=== PATIENT | female | born 1945 | race Caucasian/White ===

== ENCOUNTER 2021-03-25 14:15 | Inpatient (IN) | payer MEDICARE, MEDICAID ==
[2021-03-25] MEDS ORDERED: Sodium Chloride 0.9% 1,000 ML IV ONE (15:47)
--- NOTE | 2021-03-25 15:47 | EDM.PDOC ---
ED HPI GENERAL MEDICAL PROBLEM - General Chief Complaint: Gastrointestinal Problem Stated Complaint: RECTAL BLEEDING Time Seen by Provider: 03/25/21 15:38 Source of Information: Reports: Patient History Limitations: Reports: No Limitations - History of Present Illness INITIAL COMMENTS - FREE TEXT/NARRATIVE: HISTORY AND PHYSICAL: History of present illness: Patient is a 76-year-old female who presents to the emergency room with complaints of nausea, vomiting, left upper and lower quadrant abdominal pain and bloody stools. Patient states that over the past 2 days she has felt near syncopal, has been very weak and dizzy. She has left upper and left lower quadrant abdominal pain over the past 2 days associated with one episode of vomiting yesterday and mild nausea today. Initially she had noted some bloody stools, today it is "straight blood". No previous history of any GI diagnoses or problems. States she has never had a colonoscopy. Last normal bowel movement was 2 days ago. Patient denies any fever, chills, headache, change in vision, or syncope. Denies any chest pain, back pain, shortness of breath or cough. Denies any diarrhea, constipation, dysuria, or hematuria. Patient has been eating and drinking appropriately. Patient does take Plavix daily. Hx of hypertension. Review of systems: As per history of present illness and below otherwise all systems reviewed and negative. Past medical history: As per history of present illness and as reviewed below otherwise noncontributory. Surgical history: As per history of present illness and as reviewed below otherwise noncontributory. Social history: See social history for further information Family history: As per history of present illness and as reviewed below otherwise noncontributory. Physical exam: General: Well developed and well nourished 76 year old male. Alert and orientated x 3. Nontoxic in appearance and in no acute distress. Vital signs are stable and have been reviewed by me. Nursing notes were reviewed. Accompanied by son who is attentive to her needs at bedside. HEENT: Atraumatic, normocephalic, pupils equal and reactive bilaterally, negative for conjunctival pallor or scleral icterus, mucous membranes moist, trachea midline. No drooling or trismus noted. No meningeal signs. No hot potato voice noted. Lungs: Clear to auscultation bilaterally. No wheezes, rales, or rhonchi. Chest nontender. Normal work of breathing, no accessory muscles used. Heart: S1S2, regular rate and rhythm without overt murmur, gallops, or rubs. No JVD. No peripheral edema Abdomen: Soft, nondistended, left upper quadrant and left lower quadrant tenderness to palpation. Normoactive bowel sounds. Negative for masses or costovertebral tenderness. Pelvis: Stable nontender. Genitourinary/Rectal: This was done with consent and a shower doors and panels fabricator at the bedside. No external or internal hemorrhoids are noted. Hemoccult positive, pink/red coloration. Good rectal tone. Skin: Intact, warm, dry. No lesions or rashes noted. Hematologic: No petechiae or purpra. Mucosa appropriate color and normal nail bed color and refill. Extremities: Atraumatic, moves all extremities per self without difficulty or deficits, negative for cords or calf pain. Neurovascular unremarkable. Neuro: Awake, alert, oriented. Cranial nerves II through XII unremarkable. Cerebellum unremarkable. Motor and sensory unremarkable throughout. Exam nonfocal. Psychiatric: Mood and affect are appropriate. Normal thought process. Answering questions appropriately. Notes: *This patient was seen and evaluated during the 2019 SARS-CoV-2 novel coronavirus pandemic period. Community viral transmission is ongoing at time of this encounter and the emergency department is operating under pandemic response procedures. Patient is a 76-year-old female who presents to the emergency room with complaints of left-sided abdominal pain, blood per rectum and nausea. She states this has been ongoing for the last 2 days. Initially started as bloody stools and now it is bright red blood per rectum. She states she has felt lightheaded and dizzy like she could pass out. Vital signs are stable. We will do lab work including CT scan of the abdomen and pelvis. Patient does have a leukocytosis of 19.85 (H), hemoglobin 38.2, hematocrit 9.5. BUN 62 (H) and creatinine 2.9 (H). Unable to do CT scan with contrast due to kidney function. CT shows prominent fluid content of the distal colon consistent with a diarrheal illness. Large bilateral renal cysts. Bilateral common iliac artery stents. I did talk with Dr. Domingo about this patient for admission. She is agreeable to keeping him for colitis. I also spoke with Dr. Chin about possible follow-up/consultation. She is aware. Patient's vital signs are stable. She is aware of admission and agreeable. We will continue to monitor Diagnostics: CBC, CMP, type and screen, INR, CT abdomen and pelvis, Stool studies Therapeutics: IV fluid, Zosyn Impression: BRBPR Colitis SOFÍA Plan: Inpatient admission to Med/Surg with telemetry Definitive disposition and diagnosis as appropriate pending reevaluation and review of above. Duration: Day(s): Location: Reports: Abdomen Right Lower Abdomen Pain Score (Numeric/FACES): 8 - Related Data Allergies Allergy/AdvReac Type Severity Reaction Status Date / Time No Known Allergies Allergy Verified 12/16/13 09:08 Home Meds: Home Meds Aspirin [Durlaza] 162.5 mg PO DAILY 03/22/16 [History] Clopidogrel [Plavix] 75 mg PO DAILY 03/22/16 [History] hydroCHLOROthiazide [Hydrochlorothiazide] 50 mg PO DAILY 03/22/16 [History] lisinopriL [Zestril] 20 mg PO DAILY 03/22/16 [History] Past Medical History HEENT History: Reports: None Cardiovascular History: Reports: Hypertension, Stents Oncologic (Cancer) History: Reports: None - Infectious Disease History Infectious Disease History: Reports: Measles, Mumps Social & Family History - Family History Family Medical History: No Pertinent Family History - Tobacco Use Tobacco Use Status *Q: Current Every Day Tobacco User Years of Tobacco use: 50 Packs/Tins Daily: 1 - Caffeine Use Caffeine Use: Reports: None, Coffee - Recreational Drug Use Recreational Drug Use: No ED ROS GENERAL - Review of Systems Review Of Systems: Comprehensive ROS is negative, except as noted in HPI. ED EXAM, GENERAL - Physical Exam Exam: See Below (See dictation) Course - Vital Signs Last Recorded V/S: Last Vital Signs Temp 97.2 F 03/25/21 14:57 Pulse 88 03/25/21 14:57 Resp 18 03/25/21 14:57 BP 102/62 03/25/21 14:57 Pulse Ox 97 03/25/21 14:57 - Orders/Labs/Meds Orders: Active Orders 24 hr Category Date Time Status Admission Status [Patient Status] [ADT] Stat ADT 03/25/21 18:37 Active Orthostatic Vital Signs [RC] ASDIRECTED Care 03/25/21 15:47 Active C DIFFICILE AG/TOXIN W/REFLEX [RM] Stat Lab 03/25/21 18:44 Ordered CAMPYLOBACTER CULT [MREF] Stat Lab 03/25/21 18:44 Ordered CULTURE BLOOD [BC] Stat Lab 03/25/21 17:01 Received CULTURE BLOOD [BC] Stat Lab 03/25/21 17:08 Received CULTURE URINE [MREF] Stat Lab 03/25/21 17:31 Received H PYLORI STOOL ANTIGEN [MREF] Stat Lab 03/25/21 18:44 Ordered OCCULT BLOOD DIAGNOSTIC [OP] Stat Lab 03/25/21 15:38 Ordered OVA & PARASITES BY IMMUNOASSAY [MREF] Stat Lab 03/25/21 18:44 Ordered STOOL CULTURE/SHIGA TOXIN [MREF] Stat Lab 03/25/21 18:44 Ordered Piperacillin/Tazobactam [Piperacil-Tazobact] 3.375 gm Med 03/25/21 18:36 Active Sodium Chloride 0.9% [Normal Saline] 50 ml IV ONETIME Sodium Chloride 0.9% [Normal Saline] 1,000 ml Med 03/25/21 15:47 Active IV STAT Blood Culture x2 Reflex Set [OM.PC] Stat Oth 03/25/21 16:38 Ordered Medication Orders Sodium Chloride (Normal Saline) 1,000 mls @ 150 mls/hr IV STAT ONE Stop: 03/25/21 22:26 Last Admin: 03/25/21 15:51 Dose: 150 mls/hr Documented by: MADALYN Piperacillin Sod/Tazobactam (Sod 3.375 gm/ Sodium Chloride) 50 mls @ 100 mls/hr IV ONETIME ONE Stop: 03/25/21 19:05 Labs: Laboratory Tests 03/25/21 03/25/21 03/25/21 Range/Units 15:50 15:50 15:50 WBC 19.85 H (4.0-11.0) K/uL RBC 4.02 L (4.30-5.90) M/uL Hgb 13.1 (12.0-16.0) g/dL Hct 38.2 (36.0-46.0) % MCV 95.0 (80.0-98.0) fL MCH 32.6 H (27.0-32.0) pg MCHC 34.3 (31.0-37.0) g/dL RDW Std Deviation 49.7 (28.0-62.0) fl RDW Coeff of Chyna 14 (11.0-15.0) % Plt Count 219 (150-400) K/uL MPV 11.10 (7.40-12.00) fL Neut % (Auto) 85.0 H (48.0-80.0) % Lymph % (Auto) 8.3 L (16.0-40.0) % [place] % (Auto) 6.6 (0.0-15.0) % Eos % (Auto) 0.0 (0.0-7.0) % Baso % (Auto) 0.1 (0.0-1.5) % Neut # (Auto) 16.9 H (1.4-5.7) K/uL Lymph # (Auto) 1.6 (0.6-2.4) K/uL [place] # (Auto) 1.3 H (0.0-0.8) K/uL Eos # (Auto) 0.0 (0.0-0.7) K/uL Baso # (Auto) 0.0 (0.0-0.1) K/uL Nucleated RBC % 0.0 /100WBC Nucleated RBCs # 0 K/uL INR 1.01 Sodium 136 (136-145) mmol/L Potassium 4.2 (3.5-5.1) mmol/L Chloride 99 (98-107) mmol/L Carbon Dioxide 23.8 (21.0-32.0) mmol/L BUN 62 H (7.0-18.0) mg/dL Creatinine 2.9 H (0.6-1.0) mg/dL Est Cr Clr Drug Dosing 15.08 mL/min Estimated GFR (MDRD) 15.8 ml/min Glucose 126 H (74-106) mg/dL Lactic Acid (0.4-2.0) mmol/L Calcium 9.1 (8.5-10.1) mg/dL Total Bilirubin 0.8 (0.2-1.0) mg/dL AST 24 (15-37) IU/L ALT 25 (14-63) IU/L Alkaline Phosphatase 117 H (46-116) U/L Total Protein 7.4 (6.4-8.2) g/dL Albumin 3.7 (3.4-5.0) g/dL Globulin 3.7 (2.6-4.0) g/dL Albumin/Globulin Ratio 1.0 (0.9-1.6) Urine Color Urine Appearance Urine pH (5.0-8.0) Ur Specific [place] (1.001-1.035) Urine Protein (NEGATIVE) mg/dL Urine Glucose (UA) (NEGATIVE) mg/dL Urine Ketones (NEGATIVE) mg/dL Urine Occult Blood (NEGATIVE) Urine Nitrite (NEGATIVE) Urine Bilirubin (NEGATIVE) Urine Urobilinogen (<2.0) EU/dL Ur Leukocyte Esterase (NEGATIVE) Urine RBC (0-2/HPF) Urine WBC (0-5/HPF) Ur Epithelial Cells (NONE-FEW) Urine Bacteria (NEGATIVE) SARS-CoV-2 RNA (KELSEA) (NEGATIVE) Blood Type Antibody Screen 03/25/21 03/25/21 03/25/21 Range/Units 15:50 17:08 17:30 WBC (4.0-11.0) K/uL RBC (4.30-5.90) M/uL Hgb (12.0-16.0) g/dL Hct (36.0-46.0) % MCV (80.0-98.0) fL MCH (27.0-32.0) pg MCHC (31.0-37.0) g/dL RDW Std Deviation (28.0-62.0) fl RDW Coeff of Chyna (11.0-15.0) % Plt Count (150-400) K/uL MPV (7.40-12.00) fL Neut % (Auto) (48.0-80.0) % Lymph % (Auto) (16.0-40.0) % [place] % (Auto) (0.0-15.0) % Eos % (Auto) (0.0-7.0) % Baso % (Auto) (0.0-1.5) % Neut # (Auto) (1.4-5.7) K/uL Lymph # (Auto) (0.6-2.4) K/uL [place] # (Auto) (0.0-0.8) K/uL Eos # (Auto) (0.0-0.7) K/uL Baso # (Auto) (0.0-0.1) K/uL Nucleated RBC % /100WBC Nucleated RBCs # K/uL INR Sodium (136-145) mmol/L Potassium (3.5-5.1) mmol/L Chloride (98-107) mmol/L Carbon Dioxide (21.0-32.0) mmol/L BUN (7.0-18.0) mg/dL Creatinine (0.6-1.0) mg/dL Est Cr Clr Drug Dosing mL/min Estimated GFR (MDRD) ml/min Glucose (74-106) mg/dL Lactic Acid 1.3 (0.4-2.0) mmol/L Calcium (8.5-10.1) mg/dL Total Bilirubin (0.2-1.0) mg/dL AST (15-37) IU/L ALT (14-63) IU/L Alkaline Phosphatase (46-116) U/L Total Protein (6.4-8.2) g/dL Albumin (3.4-5.0) g/dL Globulin (2.6-4.0) g/dL Albumin/Globulin Ratio (0.9-1.6) Urine Color Urine Appearance Urine pH (5.0-8.0) Ur Specific [place] (1.001-1.035) Urine Protein (NEGATIVE) mg/dL Urine Glucose (UA) (NEGATIVE) mg/dL Urine Ketones (NEGATIVE) mg/dL Urine Occult Blood (NEGATIVE) Urine Nitrite (NEGATIVE) Urine Bilirubin (NEGATIVE) Urine Urobilinogen (<2.0) EU/dL Ur Leukocyte Esterase (NEGATIVE) Urine RBC (0-2/HPF) Urine WBC (0-5/HPF) Ur Epithelial Cells (NONE-FEW) Urine Bacteria (NEGATIVE) SARS-CoV-2 RNA (KELSEA) NEGATIVE (NEGATIVE) Blood Type O POSITIVE Antibody Screen NEGATIVE 03/25/21 Range/Units 17:31 WBC (4.0-11.0) K/uL RBC (4.30-5.90) M/uL Hgb (12.0-16.0) g/dL Hct (36.0-46.0) % MCV (80.0-98.0) fL MCH (27.0-32.0) pg MCHC (31.0-37.0) g/dL RDW Std Deviation (28.0-62.0) fl RDW Coeff of Chyna (11.0-15.0) % Plt Count (150-400) K/uL MPV (7.40-12.00) fL Neut % (Auto) (48.0-80.0) % Lymph % (Auto) (16.0-40.0) % [place] % (Auto) (0.0-15.0) % Eos % (Auto) (0.0-7.0) % Baso % (Auto) (0.0-1.5) % Neut # (Auto) (1.4-5.7) K/uL Lymph # (Auto) (0.6-2.4) K/uL [place] # (Auto) (0.0-0.8) K/uL Eos # (Auto) (0.0-0.7) K/uL Baso # (Auto) (0.0-0.1) K/uL Nucleated RBC % /100WBC Nucleated RBCs # K/uL INR Sodium (136-145) mmol/L Potassium (3.5-5.1) mmol/L Chloride (98-107) mmol/L Carbon Dioxide (21.0-32.0) mmol/L BUN (7.0-18.0) mg/dL Creatinine (0.6-1.0) mg/dL Est Cr Clr Drug Dosing mL/min Estimated GFR (MDRD) ml/min Glucose (74-106) mg/dL Lactic Acid (0.4-2.0) mmol/L Calcium (8.5-10.1) mg/dL Total Bilirubin (0.2-1.0) mg/dL AST (15-37) IU/L ALT (14-63) IU/L Alkaline Phosphatase (46-116) U/L Total Protein (6.4-8.2) g/dL Albumin (3.4-5.0) g/dL Globulin (2.6-4.0) g/dL Albumin/Globulin Ratio (0.9-1.6) Urine Color YELLOW Urine Appearance HAZY Urine pH 5.5 (5.0-8.0) Ur Specific [place] 1.020 (1.001-1.035) Urine Protein NEGATIVE (NEGATIVE) mg/dL Urine Glucose (UA) NEGATIVE (NEGATIVE) mg/dL Urine Ketones NEGATIVE (NEGATIVE) mg/dL Urine Occult Blood SMALL H (NEGATIVE) Urine Nitrite NEGATIVE (NEGATIVE) Urine Bilirubin NEGATIVE (NEGATIVE) Urine Urobilinogen 0.2 (<2.0) EU/dL Ur Leukocyte Esterase TRACE H (NEGATIVE) Urine RBC 0-1 (0-2/HPF) Urine WBC 0-2 (0-5/HPF) Ur Epithelial Cells FEW (NONE-FEW) Urine Bacteria FEW (NEGATIVE) SARS-CoV-2 RNA (KELSEA) (NEGATIVE) Blood Type Antibody Screen Meds: Medications Generic Name Dose Route Start Last Admin Trade Name Freq PRN Reason Stop Dose Admin Sodium Chloride 1,000 mls @ 150 mls/hr 03/25/21 15:47 03/25/21 15:51 Normal Saline IV 03/25/21 22:26 150 mls/hr STAT ONE Administration Piperacillin Sod/Tazobactam 50 mls @ 100 mls/hr 03/25/21 18:36 Sod 3.375 gm/ Sodium Chloride IV 03/25/21 19:05 ONETIME ONE Departure - Departure Time of Disposition: 18:49 Disposition: Admitted As Inpatient 67 Clinical Impression: BRBPR (bright red blood per rectum), Colitis, SOFÍA (acute kidney injury) - Discharge Information Referrals: Scarlett Bridges JAR CAPPER [Primary Care Provider] - Forms: ED Department Discharge Sepsis Event Note (ED) - Focused Exam Vital Signs: Vital Signs Temp Pulse Resp BP Pulse Ox 03/25/21 14:57 97.2 F 88 18 102/62 97 - My Orders Last 24 Hours: My Active Orders 03/25/21 15:38 OCCULT BLOOD DIAGNOSTIC [OP] Stat 03/25/21 15:47 Orthostatic Vital Signs [RC] ASDIRECTED Sodium Chloride 0.9% [Normal Saline] 1,000 ml IV STAT 03/25/21 16:38 Blood Culture x2 Reflex Set [OM.PC] Stat 03/25/21 17:01 CULTURE BLOOD [BC] Stat 03/25/21 17:08 CULTURE BLOOD [BC] Stat 03/25/21 17:31 CULTURE URINE [MREF] Stat 03/25/21 18:36 Piperacillin/Tazobactam [Piperacil-Tazobact] 3.375 gm Sodium Chloride 0.9% [Normal Saline] 50 ml IV ONETIME 03/25/21 18:37 Admission Status [Patient Status] [ADT] Stat 03/25/21 18:44 C DIFFICILE AG/TOXIN W/REFLEX [RM] Stat CAMPYLOBACTER CULT [MREF] Stat H PYLORI STOOL ANTIGEN [MREF] Stat OVA & PARASITES BY IMMUNOASSAY [MREF] Stat STOOL CULTURE/SHIGA TOXIN [MREF] Stat - Assessment/Plan Last 24 Hours: My Active Orders 03/25/21 15:38 OCCULT BLOOD DIAGNOSTIC [OP] Stat 03/25/21 15:47 Orthostatic Vital Signs [RC] ASDIRECTED Sodium Chloride 0.9% [Normal Saline] 1,000 ml IV STAT 03/25/21 16:38 Blood Culture x2 Reflex Set [OM.PC] Stat 03/25/21 17:01 CULTURE BLOOD [BC] Stat 03/25/21 17:08 CULTURE BLOOD [BC] Stat 03/25/21 17:31 CULTURE URINE [MREF] Stat 03/25/21 18:36 Piperacillin/Tazobactam [Piperacil-Tazobact] 3.375 gm Sodium Chloride 0.9% [Normal Saline] 50 ml IV ONETIME 03/25/21 18:37 Admission Status [Patient Status] [ADT] Stat 03/25/21 18:44 C DIFFICILE AG/TOXIN W/REFLEX [RM] Stat CAMPYLOBACTER CULT [MREF] Stat H PYLORI STOOL ANTIGEN [MREF] Stat OVA & PARASITES BY IMMUNOASSAY [MREF] Stat STOOL CULTURE/SHIGA TOXIN [MREF] Stat
[2021-03-25 16:40] LABS: CARBON DIOXIDE,CO2 23.8 mmol/L (21.0-32.0); POTASSIUM,K 4.2 mmol/L (3.5-5.1)
--- NOTE | 2021-03-25 18:17 | CT ---
Clinical INDICATION: Left lower quadrant pain. Bloody stools. TECHNIQUE: Axial noncontrast CT cuts were performed from above diaphragm to below the ischial tuberosities. Findings : There is fluid within the distal colon consistent with a diarrheal illness. The small bowel appears normal. There is no free intraperitoneal air or fluid. There are multiple cysts arising from both kidneys with the largest on the left measuring up to 5.4 cm. The largest on the right measures up to 6.2 cm. There are bilateral common iliac stents. The liver, spleen, pancreas and adrenal glands appear normal. There are no enlarged retroperitoneal, mesenteric, iliac or inguinal lymph nodes. The uterus and urinary bladder appear normal. There are no nodules or masses at the lung bases. There are no lytic or blastic skeletal lesions. IMPRESSION: 1. Prominent fluid content of the distal colon consistent with a diarrheal illness. 2. Large bilateral renal cysts. 3. Bilateral common iliac artery stents. Please note that all CT scans at this facility use dose modulation, iterative reconstruction, and/or weight-based dosing when appropriate to reduce radiation dose to as low as reasonably achievable. Dictated by Reagan Vaughn MD @ 03/25/2021 6:15:[address] Reagan Vaughn @ Mar 25 2021 6:15PM
--- NOTE | 2021-03-25 18:30 | PCM.EKG ---
#1 Interpretation Time: 18:30 EKG Interpretation Comments: 78, normal sinus rhythm, biphasic T wave in V1 through V4. Nonspecific ST/T findings
[2021-03-25] MEDS ORDERED: Piperacillin/Tazobactam 3.375 GM in Sodium Chloride 0.9% 50 ML IV ONE (18:36)
--- NOTE | 2021-03-25 18:56 | PCM.HP.2 ---
H&P History of Present Illness - General Date of Service: 03/25/21 Admit Problem/Dx: Admission Diagnosis/Problem Admission Diagnosis/Problem Colitis - History of Present Illness Initial Comments - Free Text/Narative: 76-year-old female with history of hypertension and bilateral iliac artery stents, on Plavix presents to the ER complaining of left lower quadrant abdominal pain and bloody stools. Patient states that last night she had 2 episodes of nonbloody diarrhea followed by 2 episodes of nonbloody, nonbilious vomiting. This was followed by left lower quadrant abdominal cramping and bright red blood per rectum. For the last 2 days patient has been dizzy and felt like she was going to faint. Prior to this, she had normal stools. No associated rectal pain but left lower quadrant cramping is present. She states she has to put toilet paper back there to prevent it from running down her leg. No history of diverticulosis, diverticulitis, colorectal cancer or peptic ulcer disease. Endorses nausea but still tolerating diet. No fever or chills. Denies headaches, syncope, chest pain, palpitations, shortness of breath, diarrhea, or dysuria. Denies history of C. difficile, H. pylori, ulcers. No recent NSAID use. No family history of colorectal cancer. Patient has never had a colonoscopy. Denies anticoagulation other than Aspirin and Plavix. Smokes half pack per day x50 years. No history of transfusion. Patient states she eats a normal diet with meats, carbohydrates, cereal and vegetables. Patient states that she saw her call center operator Dr. Arroyo 4 weeks ago in [place] due to swelling in her legs. Her hydrochlorothiazide was discontinued and she was started on Lasix 40 mg daily. ER Course: T97.2. Pulse 88. RR 18. BP 102/62. 97% RA. Lactic acid 1.3. WBC 19.85. Hgb 13.1. Platelet 219. INR 1.01. Sodium 136. Potassium 4.2. BUN 62. Creatinine 2.9. GFR 15.8. Glucose 116. Alk phos 117. UA shows small occult blood and trace leukocyte esterase. EKG: Normal sinus rhythm, biphasic T waves in V1 to V4. Nonspecific ST/T findings. Blood cultures pending. Urine culture pending. Occult blood pending. Normal saline at 150 mL/h. CT Abd/Pel wo contrast: Prominent food content of distal colon consistent with a diarrheal illness, large bilateral renal cyst, bilateral common iliac artery stents. Stool culture pending including Campylobacter and H. pylori. Patient started on IV Zosyn 3.375 g. Past medical history: Hypertension, hyperlipidemia, common iliac artery stents bilaterally for peripheral vascular disease, tobacco use Home medications: Aspirin 162.5 mg, Plavix 75 mg, Lasix 40 mg, lisinopril 20 mg, atorvastatin 40 mg Allergies: No known drug allergies Family history: Mother had stroke. Social history: Smokes half pack per day for 50 years. Denies alcohol use. Denies drug use. CODE STATUS: Full code. Right Lower Abdomen Pain Score (Numeric/FACES): 8 - Related Data Allergies/Adverse Reactions: Allergies Allergy/AdvReac Type Severity Reaction Status Date / Time No Known Allergies Allergy Verified 12/16/13 09:08 Home Medications: Home Meds Aspirin [Durlaza] 162.5 mg PO DAILY 03/22/16 [History] Clopidogrel [Plavix] 75 mg PO DAILY 03/22/16 [History] hydroCHLOROthiazide [Hydrochlorothiazide] 50 mg PO DAILY 03/22/16 [History] lisinopriL [Zestril] 20 mg PO DAILY 03/22/16 [History] Past Medical History HEENT History: Reports: None Cardiovascular History: Reports: Hypertension, Stents Oncologic (Cancer) History: Reports: None - Infectious Disease History Infectious Disease History: Reports: Measles, Mumps Social & Family History - Family History Family Medical History: No Pertinent Family History - Tobacco Use Tobacco Use Status *Q: Current Every Day Tobacco User Years of Tobacco use: 50 Packs/Tins Daily: 1 - Caffeine Use Caffeine Use: Reports: None, Coffee - Recreational Drug Use Recreational Drug Use: No H&P Review of Systems - Review of Systems: Review Of Systems: Comprehensive ROS is negative, except as noted in HPI. Exam - Exam Exam: See Below - Vital Signs Vital Signs: Last Vital Signs Temp 97.2 F 03/25/21 14:57 Pulse 88 03/25/21 14:57 Resp 18 03/25/21 14:57 BP 102/62 03/25/21 14:57 Pulse Ox 97 03/25/21 14:57 Weight: 155 lb - Exam General: Alert, Oriented, Moderate Distress HEENT: Conjunctiva Clear, Mucosa Moist & [place], Pupils Equal Neck: Supple. No: Lymphadenopathy, JVD Lungs: Clear to Auscultation, Normal Respiratory Effort Cardiovascular: Regular Rate, Regular Rhythm GI/Abdominal Exam: Guarding, Tender (LLQ). No: Distended, Rigid, Rebound Rectal (Female) Exam: Other (No hemorrhoids are noted. Hemoccult positive.) Extremities: Normal Inspection. No: Pedal Edema, Ashlee's Sign Peripheral Pulses: 2+: Dorsalis Pedis (L), Dorsalis Pedis (R) Neurological: No: Focal Deficit Neuro Extensive - Mental Status: Alert, Oriented x3 - Patient Data Lab Results Last 24 hrs: Laboratory Results - last 24 hr 03/25/21 03/25/21 03/25/21 Range/Units 15:50 15:50 15:50 WBC 19.85 H (4.0-11.0) K/uL RBC 4.02 L (4.30-5.90) M/uL Hgb 13.1 (12.0-16.0) g/dL Hct 38.2 (36.0-46.0) % MCV 95.0 (80.0-98.0) fL MCH 32.6 H (27.0-32.0) pg MCHC 34.3 (31.0-37.0) g/dL RDW Std Deviation 49.7 (28.0-62.0) fl RDW Coeff of Chyna 14 (11.0-15.0) % Plt Count 219 (150-400) K/uL MPV 11.10 (7.40-12.00) fL Neut % (Auto) 85.0 H (48.0-80.0) % Lymph % (Auto) 8.3 L (16.0-40.0) % [place] % (Auto) 6.6 (0.0-15.0) % Eos % (Auto) 0.0 (0.0-7.0) % Baso % (Auto) 0.1 (0.0-1.5) % Neut # (Auto) 16.9 H (1.4-5.7) K/uL Lymph # (Auto) 1.6 (0.6-2.4) K/uL [place] # (Auto) 1.3 H (0.0-0.8) K/uL Eos # (Auto) 0.0 (0.0-0.7) K/uL Baso # (Auto) 0.0 (0.0-0.1) K/uL Nucleated RBC % 0.0 /100WBC Nucleated RBCs # 0 K/uL INR 1.01 Sodium 136 (136-145) mmol/L Potassium 4.2 (3.5-5.1) mmol/L Chloride 99 (98-107) mmol/L Carbon Dioxide 23.8 (21.0-32.0) mmol/L BUN 62 H (7.0-18.0) mg/dL Creatinine 2.9 H (0.6-1.0) mg/dL Est Cr Clr Drug Dosing 15.08 mL/min Estimated GFR (MDRD) 15.8 ml/min Glucose 126 H (74-106) mg/dL Lactic Acid (0.4-2.0) mmol/L Calcium 9.1 (8.5-10.1) mg/dL Total Bilirubin 0.8 (0.2-1.0) mg/dL AST 24 (15-37) IU/L ALT 25 (14-63) IU/L Alkaline Phosphatase 117 H (46-116) U/L Total Protein 7.4 (6.4-8.2) g/dL Albumin 3.7 (3.4-5.0) g/dL Globulin 3.7 (2.6-4.0) g/dL Albumin/Globulin Ratio 1.0 (0.9-1.6) Urine Color Urine Appearance Urine pH (5.0-8.0) Ur Specific [place] (1.001-1.035) Urine Protein (NEGATIVE) mg/dL Urine Glucose (UA) (NEGATIVE) mg/dL Urine Ketones (NEGATIVE) mg/dL Urine Occult Blood (NEGATIVE) Urine Nitrite (NEGATIVE) Urine Bilirubin (NEGATIVE) Urine Urobilinogen (<2.0) EU/dL Ur Leukocyte Esterase (NEGATIVE) Urine RBC (0-2/HPF) Urine WBC (0-5/HPF) Ur Epithelial Cells (NONE-FEW) Urine Bacteria (NEGATIVE) SARS-CoV-2 RNA (KELSEA) (NEGATIVE) Blood Type Antibody Screen 03/25/21 03/25/21 03/25/21 Range/Units 15:50 17:08 17:30 WBC (4.0-11.0) K/uL RBC (4.30-5.90) M/uL Hgb (12.0-16.0) g/dL Hct (36.0-46.0) % MCV (80.0-98.0) fL MCH (27.0-32.0) pg MCHC (31.0-37.0) g/dL RDW Std Deviation (28.0-62.0) fl RDW Coeff of Chyna (11.0-15.0) % Plt Count (150-400) K/uL MPV (7.40-12.00) fL Neut % (Auto) (48.0-80.0) % Lymph % (Auto) (16.0-40.0) % [place] % (Auto) (0.0-15.0) % Eos % (Auto) (0.0-7.0) % Baso % (Auto) (0.0-1.5) % Neut # (Auto) (1.4-5.7) K/uL Lymph # (Auto) (0.6-2.4) K/uL [place] # (Auto) (0.0-0.8) K/uL Eos # (Auto) (0.0-0.7) K/uL Baso # (Auto) (0.0-0.1) K/uL Nucleated RBC % /100WBC Nucleated RBCs # K/uL INR Sodium (136-145) mmol/L Potassium (3.5-5.1) mmol/L Chloride (98-107) mmol/L Carbon Dioxide (21.0-32.0) mmol/L BUN (7.0-18.0) mg/dL Creatinine (0.6-1.0) mg/dL Est Cr Clr Drug Dosing mL/min Estimated GFR (MDRD) ml/min Glucose (74-106) mg/dL Lactic Acid 1.3 (0.4-2.0) mmol/L Calcium (8.5-10.1) mg/dL Total Bilirubin (0.2-1.0) mg/dL AST (15-37) IU/L ALT (14-63) IU/L Alkaline Phosphatase (46-116) U/L Total Protein (6.4-8.2) g/dL Albumin (3.4-5.0) g/dL Globulin (2.6-4.0) g/dL Albumin/Globulin Ratio (0.9-1.6) Urine Color Urine Appearance Urine pH (5.0-8.0) Ur Specific [place] (1.001-1.035) Urine Protein (NEGATIVE) mg/dL Urine Glucose (UA) (NEGATIVE) mg/dL Urine Ketones (NEGATIVE) mg/dL Urine Occult Blood (NEGATIVE) Urine Nitrite (NEGATIVE) Urine Bilirubin (NEGATIVE) Urine Urobilinogen (<2.0) EU/dL Ur Leukocyte Esterase (NEGATIVE) Urine RBC (0-2/HPF) Urine WBC (0-5/HPF) Ur Epithelial Cells (NONE-FEW) Urine Bacteria (NEGATIVE) SARS-CoV-2 RNA (KELSEA) NEGATIVE (NEGATIVE) Blood Type O POSITIVE Antibody Screen NEGATIVE 03/25/21 Range/Units 17:31 WBC (4.0-11.0) K/uL RBC (4.30-5.90) M/uL Hgb (12.0-16.0) g/dL Hct (36.0-46.0) % MCV (80.0-98.0) fL MCH (27.0-32.0) pg MCHC (31.0-37.0) g/dL RDW Std Deviation (28.0-62.0) fl RDW Coeff of Chyna (11.0-15.0) % Plt Count (150-400) K/uL MPV (7.40-12.00) fL Neut % (Auto) (48.0-80.0) % Lymph % (Auto) (16.0-40.0) % [place] % (Auto) (0.0-15.0) % Eos % (Auto) (0.0-7.0) % Baso % (Auto) (0.0-1.5) % Neut # (Auto) (1.4-5.7) K/uL Lymph # (Auto) (0.6-2.4) K/uL [place] # (Auto) (0.0-0.8) K/uL Eos # (Auto) (0.0-0.7) K/uL Baso # (Auto) (0.0-0.1) K/uL Nucleated RBC % /100WBC Nucleated RBCs # K/uL INR Sodium (136-145) mmol/L Potassium (3.5-5.1) mmol/L Chloride (98-107) mmol/L Carbon Dioxide (21.0-32.0) mmol/L BUN (7.0-18.0) mg/dL Creatinine (0.6-1.0) mg/dL Est Cr Clr Drug Dosing mL/min Estimated GFR (MDRD) ml/min Glucose (74-106) mg/dL Lactic Acid (0.4-2.0) mmol/L Calcium (8.5-10.1) mg/dL Total Bilirubin (0.2-1.0) mg/dL AST (15-37) IU/L ALT (14-63) IU/L Alkaline Phosphatase (46-116) U/L Total Protein (6.4-8.2) g/dL Albumin (3.4-5.0) g/dL Globulin (2.6-4.0) g/dL Albumin/Globulin Ratio (0.9-1.6) Urine Color YELLOW Urine Appearance HAZY Urine pH 5.5 (5.0-8.0) Ur Specific [place] 1.020 (1.001-1.035) Urine Protein NEGATIVE (NEGATIVE) mg/dL Urine Glucose (UA) NEGATIVE (NEGATIVE) mg/dL Urine Ketones NEGATIVE (NEGATIVE) mg/dL Urine Occult Blood SMALL H (NEGATIVE) Urine Nitrite NEGATIVE (NEGATIVE) Urine Bilirubin NEGATIVE (NEGATIVE) Urine Urobilinogen 0.2 (<2.0) EU/dL Ur Leukocyte Esterase TRACE H (NEGATIVE) Urine RBC 0-1 (0-2/HPF) Urine WBC 0-2 (0-5/HPF) Ur Epithelial Cells FEW (NONE-FEW) Urine Bacteria FEW (NEGATIVE) SARS-CoV-2 RNA (KELSEA) (NEGATIVE) Blood Type Antibody Screen Result Diagrams: 03/25/21 15:50 03/25/21 15:50 Sepsis Event Note - Focused Exam Vital Signs: Vital Signs Temp Pulse Resp BP Pulse Ox 03/25/21 14:57 97.2 F 88 18 102/62 97 - Problem List (1) LLQ abdominal pain SNOMED Code(s): 284837636 ICD Code: R10.32 - LEFT LOWER QUADRANT PAIN Status: Acute Current Visit: Yes (2) SOFÍA (acute kidney injury) SNOMED Code(s): 30002172, 53384271 ICD Code: N17.9 - ACUTE KIDNEY FAILURE, UNSPECIFIED Status: Acute Current Visit: Yes (3) BRBPR (bright red blood per rectum) SNOMED Code(s): 82298363 ICD Code: K62.5 - HEMORRHAGE OF ANUS AND RECTUM Status: Acute Current Visit: Yes (4) Diarrhea SNOMED Code(s): 87479748 ICD Code: R19.7 - DIARRHEA, UNSPECIFIED Status: Acute Current Visit: Yes Problem List Initiated/Reviewed/Updated: Yes Orders Last 24hrs: Active Orders 24 hr Category Date Time Status Admission Status [Patient Status] [ADT] Stat ADT 03/25/21 18:37 Active Orthostatic Vital Signs [RC] ASDIRECTED Care 03/25/21 15:47 Active C DIFFICILE AG/TOXIN W/REFLEX [RM] Stat Lab 03/25/21 18:44 Ordered CAMPYLOBACTER CULT [MREF] Stat Lab 03/25/21 18:44 Ordered CULTURE BLOOD [BC] Stat Lab 03/25/21 17:01 Received CULTURE BLOOD [BC] Stat Lab 03/25/21 17:08 Received CULTURE URINE [MREF] Stat Lab 03/25/21 17:31 Received H PYLORI STOOL ANTIGEN [MREF] Stat Lab 03/25/21 18:44 Ordered OCCULT BLOOD DIAGNOSTIC [OP] Stat Lab 03/25/21 15:38 Ordered OVA & PARASITES BY IMMUNOASSAY [MREF] Stat Lab 03/25/21 18:44 Ordered STOOL CULTURE/SHIGA TOXIN [MREF] Stat Lab 03/25/21 18:44 Ordered Piperacillin/Tazobactam [Piperacil-Tazobact] 3.375 gm Med 03/25/21 18:36 Active Sodium Chloride 0.9% [Normal Saline] 50 ml IV ONETIME Sodium Chloride 0.9% [Normal Saline] 1,000 ml Med 03/25/21 15:47 Active IV STAT Blood Culture x2 Reflex Set [OM.PC] Stat Oth 03/25/21 16:38 Ordered Medication Orders Sodium Chloride (Normal Saline) 1,000 mls @ 150 mls/hr IV STAT ONE Stop: 03/25/21 22:26 Last Admin: 03/25/21 15:51 Dose: 150 mls/hr Documented by: MADALYN Piperacillin Sod/Tazobactam (Sod 3.375 gm/ Sodium Chloride) 50 mls @ 100 mls/hr IV ONETIME ONE Stop: 03/25/21 19:05 Last Admin: 03/25/21 18:52 Dose: 100 mls/hr Documented by: HIMA Assessment/Plan Comment:: 76-year-old female with left lower quadrant abdominal pain and bright red blood per rectum with a history of diarrhea and vomiting. Found to have acute kidney injury. Initially had diarrhea and progressed to BRBPR. Hemoglobin is stable. Afebrile. Leukocytosis 19.85. Lactic acid unremarkable. CT shows prominent fluid in distal colon consistent with diarrheal illness. Patient will be admitted. NPO. Accu-Cheks q6hr. LR at 125 mL/h. SCDs. Monitor on telemetry. Trend H&H every 8 hours. Patient has been typed and screened. ER spoke with general surgery, Dr. Chin who will follow-up. IV Zosyn 3.375 g every 6 hours. IV morphine 2 mg q4hr prn. Follow-up blood cultures, urine culture, stool culture, Hemoccult, C. difficile H pylori antigen. Protonix bid. Zofran prn. Hold patient's aspirin, Plavix, lisinopril and Lasix. CODE STATUS: Full code.
[2021-03-25] MEDS ORDERED: Albuterol/Ipratropium 3.0-0.5 MG/3 ML Neb Soln NEB PRN (19:15)
[2021-03-25] MEDS ORDERED: Ondansetron 4 MG/2 ML SDV IVPUSH PRN (19:15)
[2021-03-25] MEDS ORDERED: Pantoprazole 40 MG Vial IV SCH (21:00)
[2021-03-25] MEDS: Morphine 2 MG/ML SYRINGE IVPUSH PRN (21:07)
[2021-03-25] MEDS: Lactated Ringers 1,000 ML IV SCH (21:11)
[2021-03-26] MEDS: Piperacillin/Tazobactam 3.375 GM in Sodium Chloride 0.9% 50 ML IV SCH ×2 (01:14→06:04)
[2021-03-26] MEDS: Lactated Ringers 1,000 ML IV SCH ×2 (05:59→17:47)
[2021-03-26 06:17] LABS: CARBON DIOXIDE,CO2 27.9 mmol/L (21.0-32.0); POTASSIUM,K 4.6 mmol/L (3.5-5.1)
[2021-03-26] MEDS: Morphine 2 MG/ML SYRINGE IVPUSH PRN ×3 (07:49→17:55)
[2021-03-26] MEDS: Pantoprazole 40 MG in Sodium Chloride 0.9% 10 ML IV SCH ×2 (09:30→20:08)
--- NOTE | 2021-03-26 13:10 | PCM.PN ---
- General Info Date of Service: 03/26/21 Admission Dx/Problem (Free Text): Admission Diagnosis/Problem Admission Diagnosis/Problem Colitis Subjective Update: 76-year-old female with history of hypertension PVD with bilateral iliac artery stents on home Plavix is admitted for colitis with BRBPR SOFÍA. This morning patient states her abdominal discomfort has improved but complains of pain colored discharge on toilet paper. She has not had a bowel movement. As per n ursing there was a damion colored liquid in the toilet. Denies active bleeding or discharge from rectum. Hemoglobin overnight were stable 10.8. Repeat at noon. Patient is afebrile she is on LR at 125. She required morphine twice since admission. She is currently on Zosyn. WBC downtrending. General surgery will see the patient later today. She remains n.p.o. She denies fever, chills, diarrhea, palpitations, chest pain, headaches, diaphoresis. Patient is passing gas. - Review of Systems General: Denies: Fever, Fatigue HEENT: Reports: No Symptoms Pulmonary: Reports: No Symptoms Cardiovascular: Reports: No Symptoms Gastrointestinal: Reports: Abdominal Pain. Denies: Hematochezia, Melena, Nausea, Vomiting Genitourinary: Reports: No Symptoms Musculoskeletal: Reports: No Symptoms Skin: Reports: No Symptoms Neurological: Reports: No Symptoms - Patient Data Vitals - Most Recent: Last Vital Signs Temp 97.2 F 03/26/21 11:30 Pulse 62 03/26/21 11:30 Resp 20 03/26/21 11:30 BP 141/71 H 03/26/21 11:30 Pulse Ox 96 03/26/21 11:30 Orthostatic Blood Pressure [ 97/61 Standing] Orthostatic Blood Pressure [ 107/92 Sitting] Orthostatic Blood Pressure [ 113/55 Supine] Weight - Most Recent: 152 lb 3 oz I&O - Last 24 Hours: Intake & Output 03/25/21 03/26/21 03/26/21 22:59 06:59 14:59 Intake Total 1125 Output Total 600 Balance 525 Lab Results Last 24 Hours: Laboratory Results - last 24 hr 03/25/21 03/25/21 03/25/21 Range/Units 15:50 15:50 15:50 WBC 19.85 H (4.0-11.0) K/uL RBC 4.02 L (4.30-5.90) M/uL Hgb 13.1 (12.0-16.0) g/dL Hct 38.2 (36.0-46.0) % MCV 95.0 (80.0-98.0) fL MCH 32.6 H (27.0-32.0) pg MCHC 34.3 (31.0-37.0) g/dL RDW Std Deviation 49.7 (28.0-62.0) fl RDW Coeff of Chyna 14 (11.0-15.0) % Plt Count 219 (150-400) K/uL MPV 11.10 (7.40-12.00) fL Neut % (Auto) 85.0 H (48.0-80.0) % Lymph % (Auto) 8.3 L (16.0-40.0) % Miller % (Auto) 6.6 (0.0-15.0) % Eos % (Auto) 0.0 (0.0-7.0) % Baso % (Auto) 0.1 (0.0-1.5) % Neut # (Auto) 16.9 H (1.4-5.7) K/uL Lymph # (Auto) 1.6 (0.6-2.4) K/uL Miller # (Auto) 1.3 H (0.0-0.8) K/uL Eos # (Auto) 0.0 (0.0-0.7) K/uL Baso # (Auto) 0.0 (0.0-0.1) K/uL Nucleated RBC % 0.0 /100WBC Nucleated RBCs # 0 K/uL INR 1.01 Sodium 136 (136-145) mmol/L Potassium 4.2 (3.5-5.1) mmol/L Chloride 99 (98-107) mmol/L Carbon Dioxide 23.8 (21.0-32.0) mmol/L BUN 62 H (7.0-18.0) mg/dL Creatinine 2.9 H (0.6-1.0) mg/dL Est Cr Clr Drug Dosing 15.08 mL/min Estimated GFR (MDRD) 15.8 ml/min Glucose 126 H (74-106) mg/dL POC Glucose (70-99) mg/dL Lactic Acid (0.4-2.0) mmol/L Calcium 9.1 (8.5-10.1) mg/dL Phosphorus (2.6-4.7) mg/dL Magnesium (1.8-2.4) mg/dL Total Bilirubin 0.8 (0.2-1.0) mg/dL AST 24 (15-37) IU/L ALT 25 (14-63) IU/L Alkaline Phosphatase 117 H (46-116) U/L Total Protein 7.4 (6.4-8.2) g/dL Albumin 3.7 (3.4-5.0) g/dL Globulin 3.7 (2.6-4.0) g/dL Albumin/Globulin Ratio 1.0 (0.9-1.6) Urine Color Urine Appearance Urine pH (5.0-8.0) Ur Specific [place] (1.001-1.035) Urine Protein (NEGATIVE) mg/dL Urine Glucose (UA) (NEGATIVE) mg/dL Urine Ketones (NEGATIVE) mg/dL Urine Occult Blood (NEGATIVE) Urine Nitrite (NEGATIVE) Urine Bilirubin (NEGATIVE) Urine Urobilinogen (<2.0) EU/dL Ur Leukocyte Esterase (NEGATIVE) Urine RBC (0-2/HPF) Urine WBC (0-5/HPF) Ur Epithelial Cells (NONE-FEW) Urine Bacteria (NEGATIVE) SARS-CoV-2 RNA (KELSEA) (NEGATIVE) Blood Type Antibody Screen 03/25/21 03/25/21 03/25/21 Range/Units 15:50 15:50 17:08 WBC (4.0-11.0) K/uL RBC (4.30-5.90) M/uL Hgb (12.0-16.0) g/dL Hct (36.0-46.0) % MCV (80.0-98.0) fL MCH (27.0-32.0) pg MCHC (31.0-37.0) g/dL RDW Std Deviation (28.0-62.0) fl RDW Coeff of Chyna (11.0-15.0) % Plt Count (150-400) K/uL MPV (7.40-12.00) fL Neut % (Auto) (48.0-80.0) % Lymph % (Auto) (16.0-40.0) % Miller % (Auto) (0.0-15.0) % Eos % (Auto) (0.0-7.0) % Baso % (Auto) (0.0-1.5) % Neut # (Auto) (1.4-5.7) K/uL Lymph # (Auto) (0.6-2.4) K/uL Miller # (Auto) (0.0-0.8) K/uL Eos # (Auto) (0.0-0.7) K/uL Baso # (Auto) (0.0-0.1) K/uL Nucleated RBC % /100WBC Nucleated RBCs # K/uL INR Sodium (136-145) mmol/L Potassium (3.5-5.1) mmol/L Chloride (98-107) mmol/L Carbon Dioxide (21.0-32.0) mmol/L BUN (7.0-18.0) mg/dL Creatinine (0.6-1.0) mg/dL Est Cr Clr Drug Dosing mL/min Estimated GFR (MDRD) ml/min Glucose (74-106) mg/dL POC Glucose (70-99) mg/dL Lactic Acid 1.3 (0.4-2.0) mmol/L Calcium (8.5-10.1) mg/dL Phosphorus 4.1 (2.6-4.7) mg/dL Magnesium 2.1 (1.8-2.4) mg/dL Total Bilirubin (0.2-1.0) mg/dL AST (15-37) IU/L ALT (14-63) IU/L Alkaline Phosphatase (46-116) U/L Total Protein (6.4-8.2) g/dL Albumin (3.4-5.0) g/dL Globulin (2.6-4.0) g/dL Albumin/Globulin Ratio (0.9-1.6) Urine Color Urine Appearance Urine pH (5.0-8.0) Ur Specific [place] (1.001-1.035) Urine Protein (NEGATIVE) mg/dL Urine Glucose (UA) (NEGATIVE) mg/dL Urine Ketones (NEGATIVE) mg/dL Urine Occult Blood (NEGATIVE) Urine Nitrite (NEGATIVE) Urine Bilirubin (NEGATIVE) Urine Urobilinogen (<2.0) EU/dL Ur Leukocyte Esterase (NEGATIVE) Urine RBC (0-2/HPF) Urine WBC (0-5/HPF) Ur Epithelial Cells (NONE-FEW) Urine Bacteria (NEGATIVE) SARS-CoV-2 RNA (KELSEA) (NEGATIVE) Blood Type O POSITIVE Antibody Screen NEGATIVE 03/25/21 03/25/21 03/25/21 Range/Units 17:30 17:31 23:47 WBC (4.0-11.0) K/uL RBC (4.30-5.90) M/uL Hgb 10.8 L (12.0-16.0) g/dL Hct 31.2 L (36.0-46.0) % MCV (80.0-98.0) fL MCH (27.0-32.0) pg MCHC (31.0-37.0) g/dL RDW Std Deviation (28.0-62.0) fl RDW Coeff of Chyna (11.0-15.0) % Plt Count (150-400) K/uL MPV (7.40-12.00) fL Neut % (Auto) (48.0-80.0) % Lymph % (Auto) (16.0-40.0) % Miller % (Auto) (0.0-15.0) % Eos % (Auto) (0.0-7.0) % Baso % (Auto) (0.0-1.5) % Neut # (Auto) (1.4-5.7) K/uL Lymph # (Auto) (0.6-2.4) K/uL Miller # (Auto) (0.0-0.8) K/uL Eos # (Auto) (0.0-0.7) K/uL Baso # (Auto) (0.0-0.1) K/uL Nucleated RBC % /100WBC Nucleated RBCs # K/uL INR Sodium (136-145) mmol/L Potassium (3.5-5.1) mmol/L Chloride (98-107) mmol/L Carbon Dioxide (21.0-32.0) mmol/L BUN (7.0-18.0) mg/dL Creatinine (0.6-1.0) mg/dL Est Cr Clr Drug Dosing mL/min Estimated GFR (MDRD) ml/min Glucose (74-106) mg/dL POC Glucose (70-99) mg/dL Lactic Acid (0.4-2.0) mmol/L Calcium (8.5-10.1) mg/dL Phosphorus (2.6-4.7) mg/dL Magnesium (1.8-2.4) mg/dL Total Bilirubin (0.2-1.0) mg/dL AST (15-37) IU/L ALT (14-63) IU/L Alkaline Phosphatase (46-116) U/L Total Protein (6.4-8.2) g/dL Albumin (3.4-5.0) g/dL Globulin (2.6-4.0) g/dL Albumin/Globulin Ratio (0.9-1.6) Urine Color YELLOW Urine Appearance HAZY Urine pH 5.5 (5.0-8.0) Ur Specific [place] 1.020 (1.001-1.035) Urine Protein NEGATIVE (NEGATIVE) mg/dL Urine Glucose (UA) NEGATIVE (NEGATIVE) mg/dL Urine Ketones NEGATIVE (NEGATIVE) mg/dL Urine Occult Blood SMALL H (NEGATIVE) Urine Nitrite NEGATIVE (NEGATIVE) Urine Bilirubin NEGATIVE (NEGATIVE) Urine Urobilinogen 0.2 (<2.0) EU/dL Ur Leukocyte Esterase TRACE H (NEGATIVE) Urine RBC 0-1 (0-2/HPF) Urine WBC 0-2 (0-5/HPF) Ur Epithelial Cells FEW (NONE-FEW) Urine Bacteria FEW (NEGATIVE) SARS-CoV-2 RNA (KELSEA) NEGATIVE (NEGATIVE) Blood Type Antibody Screen 03/26/21 03/26/21 03/26/21 Range/Units 01:12 05:40 05:40 WBC 12.94 H (4.0-11.0) K/uL RBC 3.30 L (4.30-5.90) M/uL Hgb 10.8 L (12.0-16.0) g/dL Hct 31.8 L (36.0-46.0) % MCV 96.4 (80.0-98.0) fL MCH 32.7 H (27.0-32.0) pg MCHC 34.0 (31.0-37.0) g/dL RDW Std Deviation 51.4 (28.0-62.0) fl RDW Coeff of Chyna 14 (11.0-15.0) % Plt Count 162 (150-400) K/uL MPV 10.50 (7.40-12.00) fL Neut % (Auto) 82.2 H (48.0-80.0) % Lymph % (Auto) 12.1 L (16.0-40.0) % Miller % (Auto) 5.3 (0.0-15.0) % Eos % (Auto) 0.2 (0.0-7.0) % Baso % (Auto) 0.2 (0.0-1.5) % Neut # (Auto) 10.7 H (1.4-5.7) K/uL Lymph # (Auto) 1.6 (0.6-2.4) K/uL Miller # (Auto) 0.7 (0.0-0.8) K/uL Eos # (Auto) 0.0 (0.0-0.7) K/uL Baso # (Auto) 0.0 (0.0-0.1) K/uL Nucleated RBC % 0.0 /100WBC Nucleated RBCs # 0 K/uL INR Sodium 140 (136-145) mmol/L Potassium 4.6 (3.5-5.1) mmol/L Chloride 104 (98-107) mmol/L Carbon Dioxide 27.9 (21.0-32.0) mmol/L BUN 54 H (7.0-18.0) mg/dL Creatinine 2.7 H (0.6-1.0) mg/dL Est Cr Clr Drug Dosing 16.53 mL/min Estimated GFR (MDRD) 17.2 ml/min Glucose 98 (74-106) mg/dL POC Glucose 114 H (70-99) mg/dL Lactic Acid (0.4-2.0) mmol/L Calcium 8.6 (8.5-10.1) mg/dL Phosphorus (2.6-4.7) mg/dL Magnesium (1.8-2.4) mg/dL Total Bilirubin 0.9 (0.2-1.0) mg/dL AST 20 (15-37) IU/L ALT 22 (14-63) IU/L Alkaline Phosphatase 84 (46-116) U/L Total Protein 6.0 L (6.4-8.2) g/dL Albumin 2.8 L (3.4-5.0) g/dL Globulin 3.2 (2.6-4.0) g/dL Albumin/Globulin Ratio 0.9 (0.9-1.6) Urine Color Urine Appearance Urine pH (5.0-8.0) Ur Specific [place] (1.001-1.035) Urine Protein (NEGATIVE) mg/dL Urine Glucose (UA) (NEGATIVE) mg/dL Urine Ketones (NEGATIVE) mg/dL Urine Occult Blood (NEGATIVE) Urine Nitrite (NEGATIVE) Urine Bilirubin (NEGATIVE) Urine Urobilinogen (<2.0) EU/dL Ur Leukocyte Esterase (NEGATIVE) Urine RBC (0-2/HPF) Urine WBC (0-5/HPF) Ur Epithelial Cells (NONE-FEW) Urine Bacteria (NEGATIVE) SARS-CoV-2 RNA (KELSEA) (NEGATIVE) Blood Type Antibody Screen 03/26/21 03/26/21 Range/Units 06:11 11:56 WBC (4.0-11.0) K/uL RBC (4.30-5.90) M/uL Hgb (12.0-16.0) g/dL Hct (36.0-46.0) % MCV (80.0-98.0) fL MCH (27.0-32.0) pg MCHC (31.0-37.0) g/dL RDW Std Deviation (28.0-62.0) fl RDW Coeff of Chyna (11.0-15.0) % Plt Count (150-400) K/uL MPV (7.40-12.00) fL Neut % (Auto) (48.0-80.0) % Lymph % (Auto) (16.0-40.0) % Miller % (Auto) (0.0-15.0) % Eos % (Auto) (0.0-7.0) % Baso % (Auto) (0.0-1.5) % Neut # (Auto) (1.4-5.7) K/uL Lymph # (Auto) (0.6-2.4) K/uL Miller # (Auto) (0.0-0.8) K/uL Eos # (Auto) (0.0-0.7) K/uL Baso # (Auto) (0.0-0.1) K/uL Nucleated RBC % /100WBC Nucleated RBCs # K/uL INR Sodium (136-145) mmol/L Potassium (3.5-5.1) mmol/L Chloride (98-107) mmol/L Carbon Dioxide (21.0-32.0) mmol/L BUN (7.0-18.0) mg/dL Creatinine (0.6-1.0) mg/dL Est Cr Clr Drug Dosing mL/min Estimated GFR (MDRD) ml/min Glucose (74-106) mg/dL POC Glucose 104 H 90 (70-99) mg/dL Lactic Acid (0.4-2.0) mmol/L Calcium (8.5-10.1) mg/dL Phosphorus (2.6-4.7) mg/dL Magnesium (1.8-2.4) mg/dL Total Bilirubin (0.2-1.0) mg/dL AST (15-37) IU/L ALT (14-63) IU/L Alkaline Phosphatase (46-116) U/L Total Protein (6.4-8.2) g/dL Albumin (3.4-5.0) g/dL Globulin (2.6-4.0) g/dL Albumin/Globulin Ratio (0.9-1.6) Urine Color Urine Appearance Urine pH (5.0-8.0) Ur Specific [place] (1.001-1.035) Urine Protein (NEGATIVE) mg/dL Urine Glucose (UA) (NEGATIVE) mg/dL Urine Ketones (NEGATIVE) mg/dL Urine Occult Blood (NEGATIVE) Urine Nitrite (NEGATIVE) Urine Bilirubin (NEGATIVE) Urine Urobilinogen (<2.0) EU/dL Ur Leukocyte Esterase (NEGATIVE) Urine RBC (0-2/HPF) Urine WBC (0-5/HPF) Ur Epithelial Cells (NONE-FEW) Urine Bacteria (NEGATIVE) SARS-CoV-2 RNA (KELSEA) (NEGATIVE) Blood Type Antibody Screen Med Orders - Current: Current Medications Albuterol/Ipratropium (Albuterol/Ipratropium 3.0-0.5 Mg/3 Ml Neb Soln) 3 ml NEB Q4HRRT PRN PRN Reason: Shortness Of Breath/wheezing Lactated Ringer's (Ringers, Lactated) 1,000 mls @ 125 mls/hr IV ASDIRECTED [facility] Last Admin: 03/26/21 05:59 Dose: 125 mls/hr Documented by: Pantoprazole Sodium 40 mg/ (Sodium Chloride) 10 mls @ 300 mls/hr IV Q12H [facility] Last Admin: 03/26/21 09:30 Dose: 300 mls/hr Documented by: Piperacillin Sod/Tazobactam (Sod 2.25 gm/ Sodium Chloride) 50 mls @ 100 mls/hr IV Q8H ROB Morphine Sulfate (Morphine 2 Mg/Ml Syringe) 2 mg IVPUSH Q4H PRN PRN Reason: Pain Last Admin: 03/26/21 13:06 Dose: 2 mg Documented by: Ondansetron HCl (Ondansetron 4 Mg/2 Ml Sdv) 4 mg IVPUSH Q4H PRN PRN Reason: Nausea/Vomiting Discontinued Medications Sodium Chloride (Normal Saline) 1,000 mls @ 150 mls/hr IV STAT ONE Stop: 03/25/21 22:26 Last Admin: 03/25/21 15:51 Dose: 150 mls/hr Documented by: Piperacillin Sod/Tazobactam (Sod 3.375 gm/ Sodium Chloride) 50 mls @ 100 mls/hr IV ONETIME ONE Stop: 03/25/21 19:05 Last Admin: 03/25/21 18:52 Dose: 100 mls/hr Documented by: Piperacillin Sod/Tazobactam (Sod 3.375 gm/ Sodium Chloride) 50 mls @ 100 mls/hr IV Q6H [facility] Stop: 03/26/21 08:00 Last Admin: 03/26/21 06:04 Dose: 100 mls/hr Documented by: Pantoprazole Sodium (Pantoprazole 40 Mg Vial) 40 mg IV Q12HR [facility] Last Admin: 03/25/21 21:07 Dose: 40 mg Documented by: - Exam General: Alert, Oriented, Cooperative, No Acute Distress HEENT: Pupils Equal Neck: Supple Lungs: Clear to Auscultation Cardiovascular: Regular Rate, Regular Rhythm GI/Abdominal Exam: No Distention, Tender (Left lower quadrant tenderness.). No: Distended, Guarding, Rigid, Rebound Back Exam: Normal Inspection Extremities: Normal Inspection. No: Pedal Edema, Ashlee's Sign, Leg Pain Skin: Warm, Dry Neurological: No New Focal Deficit - Patient Data Lab Results Last 24 hrs: Laboratory Results - last 24 hr 03/25/21 03/25/21 03/25/21 Range/Units 15:50 15:50 15:50 WBC 19.85 H (4.0-11.0) K/uL RBC 4.02 L (4.30-5.90) M/uL Hgb 13.1 (12.0-16.0) g/dL Hct 38.2 (36.0-46.0) % MCV 95.0 (80.0-98.0) fL MCH 32.6 H (27.0-32.0) pg MCHC 34.3 (31.0-37.0) g/dL RDW Std Deviation 49.7 (28.0-62.0) fl RDW Coeff of Chyna 14 (11.0-15.0) % Plt Count 219 (150-400) K/uL MPV 11.10 (7.40-12.00) fL Neut % (Auto) 85.0 H (48.0-80.0) % Lymph % (Auto) 8.3 L (16.0-40.0) % Miller % (Auto) 6.6 (0.0-15.0) % Eos % (Auto) 0.0 (0.0-7.0) % Baso % (Auto) 0.1 (0.0-1.5) % Neut # (Auto) 16.9 H (1.4-5.7) K/uL Lymph # (Auto) 1.6 (0.6-2.4) K/uL Miller # (Auto) 1.3 H (0.0-0.8) K/uL Eos # (Auto) 0.0 (0.0-0.7) K/uL Baso # (Auto) 0.0 (0.0-0.1) K/uL Nucleated RBC % 0.0 /100WBC Nucleated RBCs # 0 K/uL INR 1.01 Sodium 136 (136-145) mmol/L Potassium 4.2 (3.5-5.1) mmol/L Chloride 99 (98-107) mmol/L Carbon Dioxide 23.8 (21.0-32.0) mmol/L BUN 62 H (7.0-18.0) mg/dL Creatinine 2.9 H (0.6-1.0) mg/dL Est Cr Clr Drug Dosing 15.08 mL/min Estimated GFR (MDRD) 15.8 ml/min Glucose 126 H (74-106) mg/dL POC Glucose (70-99) mg/dL Lactic Acid (0.4-2.0) mmol/L Calcium 9.1 (8.5-10.1) mg/dL Phosphorus (2.6-4.7) mg/dL Magnesium (1.8-2.4) mg/dL Total Bilirubin 0.8 (0.2-1.0) mg/dL AST 24 (15-37) IU/L ALT 25 (14-63) IU/L Alkaline Phosphatase 117 H (46-116) U/L Total Protein 7.4 (6.4-8.2) g/dL Albumin 3.7 (3.4-5.0) g/dL Globulin 3.7 (2.6-4.0) g/dL Albumin/Globulin Ratio 1.0 (0.9-1.6) Urine Color Urine Appearance Urine pH (5.0-8.0) Ur Specific [place] (1.001-1.035) Urine Protein (NEGATIVE) mg/dL Urine Glucose (UA) (NEGATIVE) mg/dL Urine Ketones (NEGATIVE) mg/dL Urine Occult Blood (NEGATIVE) Urine Nitrite (NEGATIVE) Urine Bilirubin (NEGATIVE) Urine Urobilinogen (<2.0) EU/dL Ur Leukocyte Esterase (NEGATIVE) Urine RBC (0-2/HPF) Urine WBC (0-5/HPF) Ur Epithelial Cells (NONE-FEW) Urine Bacteria (NEGATIVE) SARS-CoV-2 RNA (KELSEA) (NEGATIVE) Blood Type Antibody Screen 03/25/21 03/25/21 03/25/21 Range/Units 15:50 15:50 17:08 WBC (4.0-11.0) K/uL RBC (4.30-5.90) M/uL Hgb (12.0-16.0) g/dL Hct (36.0-46.0) % MCV (80.0-98.0) fL MCH (27.0-32.0) pg MCHC (31.0-37.0) g/dL RDW Std Deviation (28.0-62.0) fl RDW Coeff of Chyna (11.0-15.0) % Plt Count (150-400) K/uL MPV (7.40-12.00) fL Neut % (Auto) (48.0-80.0) % Lymph % (Auto) (16.0-40.0) % Miller % (Auto) (0.0-15.0) % Eos % (Auto) (0.0-7.0) % Baso % (Auto) (0.0-1.5) % Neut # (Auto) (1.4-5.7) K/uL Lymph # (Auto) (0.6-2.4) K/uL Miller # (Auto) (0.0-0.8) K/uL Eos # (Auto) (0.0-0.7) K/uL Baso # (Auto) (0.0-0.1) K/uL Nucleated RBC % /100WBC Nucleated RBCs # K/uL INR Sodium (136-145) mmol/L Potassium (3.5-5.1) mmol/L Chloride (98-107) mmol/L Carbon Dioxide (21.0-32.0) mmol/L BUN (7.0-18.0) mg/dL Creatinine (0.6-1.0) mg/dL Est Cr Clr Drug Dosing mL/min Estimated GFR (MDRD) ml/min Glucose (74-106) mg/dL POC Glucose (70-99) mg/dL Lactic Acid 1.3 (0.4-2.0) mmol/L Calcium (8.5-10.1) mg/dL Phosphorus 4.1 (2.6-4.7) mg/dL Magnesium 2.1 (1.8-2.4) mg/dL Total Bilirubin (0.2-1.0) mg/dL AST (15-37) IU/L ALT (14-63) IU/L Alkaline Phosphatase (46-116) U/L Total Protein (6.4-8.2) g/dL Albumin (3.4-5.0) g/dL Globulin (2.6-4.0) g/dL Albumin/Globulin Ratio (0.9-1.6) Urine Color Urine Appearance Urine pH (5.0-8.0) Ur Specific [place] (1.001-1.035) Urine Protein (NEGATIVE) mg/dL Urine Glucose (UA) (NEGATIVE) mg/dL Urine Ketones (NEGATIVE) mg/dL Urine Occult Blood (NEGATIVE) Urine Nitrite (NEGATIVE) Urine Bilirubin (NEGATIVE) Urine Urobilinogen (<2.0) EU/dL Ur Leukocyte Esterase (NEGATIVE) Urine RBC (0-2/HPF) Urine WBC (0-5/HPF) Ur Epithelial Cells (NONE-FEW) Urine Bacteria (NEGATIVE) SARS-CoV-2 RNA (KELSEA) (NEGATIVE) Blood Type O POSITIVE Antibody Screen NEGATIVE 03/25/21 03/25/21 03/25/21 Range/Units 17:30 17:31 23:47 WBC (4.0-11.0) K/uL RBC (4.30-5.90) M/uL Hgb 10.8 L (12.0-16.0) g/dL Hct 31.2 L (36.0-46.0) % MCV (80.0-98.0) fL MCH (27.0-32.0) pg MCHC (31.0-37.0) g/dL RDW Std Deviation (28.0-62.0) fl RDW Coeff of Chyna (11.0-15.0) % Plt Count (150-400) K/uL MPV (7.40-12.00) fL Neut % (Auto) (48.0-80.0) % Lymph % (Auto) (16.0-40.0) % Miller % (Auto) (0.0-15.0) % Eos % (Auto) (0.0-7.0) % Baso % (Auto) (0.0-1.5) % Neut # (Auto) (1.4-5.7) K/uL Lymph # (Auto) (0.6-2.4) K/uL Miller # (Auto) (0.0-0.8) K/uL Eos # (Auto) (0.0-0.7) K/uL Baso # (Auto) (0.0-0.1) K/uL Nucleated RBC % /100WBC Nucleated RBCs # K/uL INR Sodium (136-145) mmol/L Potassium (3.5-5.1) mmol/L Chloride (98-107) mmol/L Carbon Dioxide (21.0-32.0) mmol/L BUN (7.0-18.0) mg/dL Creatinine (0.6-1.0) mg/dL Est Cr Clr Drug Dosing mL/min Estimated GFR (MDRD) ml/min Glucose (74-106) mg/dL POC Glucose (70-99) mg/dL Lactic Acid (0.4-2.0) mmol/L Calcium (8.5-10.1) mg/dL Phosphorus (2.6-4.7) mg/dL Magnesium (1.8-2.4) mg/dL Total Bilirubin (0.2-1.0) mg/dL AST (15-37) IU/L ALT (14-63) IU/L Alkaline Phosphatase (46-116) U/L Total Protein (6.4-8.2) g/dL Albumin (3.4-5.0) g/dL Globulin (2.6-4.0) g/dL Albumin/Globulin Ratio (0.9-1.6) Urine Color YELLOW Urine Appearance HAZY Urine pH 5.5 (5.0-8.0) Ur Specific [place] 1.020 (1.001-1.035) Urine Protein NEGATIVE (NEGATIVE) mg/dL Urine Glucose (UA) NEGATIVE (NEGATIVE) mg/dL Urine Ketones NEGATIVE (NEGATIVE) mg/dL Urine Occult Blood SMALL H (NEGATIVE) Urine Nitrite NEGATIVE (NEGATIVE) Urine Bilirubin NEGATIVE (NEGATIVE) Urine Urobilinogen 0.2 (<2.0) EU/dL Ur Leukocyte Esterase TRACE H (NEGATIVE) Urine RBC 0-1 (0-2/HPF) Urine WBC 0-2 (0-5/HPF) Ur Epithelial Cells FEW (NONE-FEW) Urine Bacteria FEW (NEGATIVE) SARS-CoV-2 RNA (KELSEA) NEGATIVE (NEGATIVE) Blood Type Antibody Screen 03/26/21 03/26/21 03/26/21 Range/Units 01:12 05:40 05:40 WBC 12.94 H (4.0-11.0) K/uL RBC 3.30 L (4.30-5.90) M/uL Hgb 10.8 L (12.0-16.0) g/dL Hct 31.8 L (36.0-46.0) % MCV 96.4 (80.0-98.0) fL MCH 32.7 H (27.0-32.0) pg MCHC 34.0 (31.0-37.0) g/dL RDW Std Deviation 51.4 (28.0-62.0) fl RDW Coeff of Chyna 14 (11.0-15.0) % Plt Count 162 (150-400) K/uL MPV 10.50 (7.40-12.00) fL Neut % (Auto) 82.2 H (48.0-80.0) % Lymph % (Auto) 12.1 L (16.0-40.0) % Miller % (Auto) 5.3 (0.0-15.0) % Eos % (Auto) 0.2 (0.0-7.0) % Baso % (Auto) 0.2 (0.0-1.5) % Neut # (Auto) 10.7 H (1.4-5.7) K/uL Lymph # (Auto) 1.6 (0.6-2.4) K/uL Miller # (Auto) 0.7 (0.0-0.8) K/uL Eos # (Auto) 0.0 (0.0-0.7) K/uL Baso # (Auto) 0.0 (0.0-0.1) K/uL Nucleated RBC % 0.0 /100WBC Nucleated RBCs # 0 K/uL INR Sodium 140 (136-145) mmol/L Potassium 4.6 (3.5-5.1) mmol/L Chloride 104 (98-107) mmol/L Carbon Dioxide 27.9 (21.0-32.0) mmol/L BUN 54 H (7.0-18.0) mg/dL Creatinine 2.7 H (0.6-1.0) mg/dL Est Cr Clr Drug Dosing 16.53 mL/min Estimated GFR (MDRD) 17.2 ml/min Glucose 98 (74-106) mg/dL POC Glucose 114 H (70-99) mg/dL Lactic Acid (0.4-2.0) mmol/L Calcium 8.6 (8.5-10.1) mg/dL Phosphorus (2.6-4.7) mg/dL Magnesium (1.8-2.4) mg/dL Total Bilirubin 0.9 (0.2-1.0) mg/dL AST 20 (15-37) IU/L ALT 22 (14-63) IU/L Alkaline Phosphatase 84 (46-116) U/L Total Protein 6.0 L (6.4-8.2) g/dL Albumin 2.8 L (3.4-5.0) g/dL Globulin 3.2 (2.6-4.0) g/dL Albumin/Globulin Ratio 0.9 (0.9-1.6) Urine Color Urine Appearance Urine pH (5.0-8.0) Ur Specific [place] (1.001-1.035) Urine Protein (NEGATIVE) mg/dL Urine Glucose (UA) (NEGATIVE) mg/dL Urine Ketones (NEGATIVE) mg/dL Urine Occult Blood (NEGATIVE) Urine Nitrite (NEGATIVE) Urine Bilirubin (NEGATIVE) Urine Urobilinogen (<2.0) EU/dL Ur Leukocyte Esterase (NEGATIVE) Urine RBC (0-2/HPF) Urine WBC (0-5/HPF) Ur Epithelial Cells (NONE-FEW) Urine Bacteria (NEGATIVE) SARS-CoV-2 RNA (KELSEA) (NEGATIVE) Blood Type Antibody Screen 03/26/21 03/26/21 Range/Units 06:11 11:56 WBC (4.0-11.0) K/uL RBC (4.30-5.90) M/uL Hgb (12.0-16.0) g/dL Hct (36.0-46.0) % MCV (80.0-98.0) fL MCH (27.0-32.0) pg MCHC (31.0-37.0) g/dL RDW Std Deviation (28.0-62.0) fl RDW Coeff of Chyna (11.0-15.0) % Plt Count (150-400) K/uL MPV (7.40-12.00) fL Neut % (Auto) (48.0-80.0) % Lymph % (Auto) (16.0-40.0) % Miller % (Auto) (0.0-15.0) % Eos % (Auto) (0.0-7.0) % Baso % (Auto) (0.0-1.5) % Neut # (Auto) (1.4-5.7) K/uL Lymph # (Auto) (0.6-2.4) K/uL Miller # (Auto) (0.0-0.8) K/uL Eos # (Auto) (0.0-0.7) K/uL Baso # (Auto) (0.0-0.1) K/uL Nucleated RBC % /100WBC Nucleated RBCs # K/uL INR Sodium (136-145) mmol/L Potassium (3.5-5.1) mmol/L Chloride (98-107) mmol/L Carbon Dioxide (21.0-32.0) mmol/L BUN (7.0-18.0) mg/dL Creatinine (0.6-1.0) mg/dL Est Cr Clr Drug Dosing mL/min Estimated GFR (MDRD) ml/min Glucose (74-106) mg/dL POC Glucose 104 H 90 (70-99) mg/dL Lactic Acid (0.4-2.0) mmol/L Calcium (8.5-10.1) mg/dL Phosphorus (2.6-4.7) mg/dL Magnesium (1.8-2.4) mg/dL Total Bilirubin (0.2-1.0) mg/dL AST (15-37) IU/L ALT (14-63) IU/L Alkaline Phosphatase (46-116) U/L Total Protein (6.4-8.2) g/dL Albumin (3.4-5.0) g/dL Globulin (2.6-4.0) g/dL Albumin/Globulin Ratio (0.9-1.6) Urine Color Urine Appearance Urine pH (5.0-8.0) Ur Specific [place] (1.001-1.035) Urine Protein (NEGATIVE) mg/dL Urine Glucose (UA) (NEGATIVE) mg/dL Urine Ketones (NEGATIVE) mg/dL Urine Occult Blood (NEGATIVE) Urine Nitrite (NEGATIVE) Urine Bilirubin (NEGATIVE) Urine Urobilinogen (<2.0) EU/dL Ur Leukocyte Esterase (NEGATIVE) Urine RBC (0-2/HPF) Urine WBC (0-5/HPF) Ur Epithelial Cells (NONE-FEW) Urine Bacteria (NEGATIVE) SARS-CoV-2 RNA (KELSEA) (NEGATIVE) Blood Type Antibody Screen Result Diagrams: 03/26/21 15:06 03/26/21 05:40 Sepsis Event Note - Focused Exam Vital Signs: Vital Signs Temp Pulse Resp BP BP Pulse Ox 03/26/21 11:30 97.2 F 62 20 141/71 H 140/63 96 03/26/21 07:58 98.3 F 64 22 H 131/63 93 L 03/26/21 06:00 98.3 F 61 15 121/51 L 92 L - Problem List & Annotations (1) LLQ abdominal pain SNOMED Code(s): 358535864 Code(s): R10.32 - LEFT LOWER QUADRANT PAIN Status: Acute Current Visit: Yes (2) SOFÍA (acute kidney injury) SNOMED Code(s): 47433878, 17734752 Code(s): N17.9 - ACUTE KIDNEY FAILURE, UNSPECIFIED Status: Acute Current Visit: Yes (3) BRBPR (bright red blood per rectum) SNOMED Code(s): 70597851 Code(s): K62.5 - HEMORRHAGE OF ANUS AND RECTUM Status: Acute Current Visit: Yes (4) Diarrhea SNOMED Code(s): 31144258 Code(s): R19.7 - DIARRHEA, UNSPECIFIED Status: Acute Current Visit: Yes - Problem List Review Problem List Initiated/Reviewed/Updated: Yes - My Orders Last 24 Hours: My Active Orders 03/25/21 Dinner Nothing per Oral Now Diet [DIET] 03/25/21 19:15 Ambulate [RC] ASDIRECTED Blood Glucose Check, Bedside [RC] Q6HR Oxygen Therapy [RC] PRN VTE/DVT Education [RC] PER UNIT ROUTINE Vital Signs [RC] Q4H Albuterol/Ipratropium [DuoNeb 3.0-0.5 MG/3 ML] 3 ml NEB Q4HRRT PRN Lactated Ringers [Ringers, Lactated] 1,000 ml IV ASDIRECTED Ondansetron [Zofran] 4 mg IVPUSH Q4H PRN 03/25/21 19:17 Cardiac Monitoring [RC] CONTINUOUS Sequential Compression Device [OM.PC] Per Unit Routine 03/25/21 19:18 Antiembolic Devices [RC] PER UNIT ROUTINE 03/25/21 19:20 RT Aerosol Therapy [RC] ASDIRECTED 03/25/21 20:00 Consult to Physician [CONS] Routine 03/25/21 20:02 Notify Provider Consults [RC] ASDIRECTED 03/25/21 20:12 Code Status [Resuscitation Status] Stat 03/25/21 20:21 Morphine 2 mg IVPUSH Q4H PRN 03/26/21 15:00 Piperacillin/Tazobactam [Zosyn] 2.25 gm Sodium Chloride 0.9% [Normal Saline] 50 ml IV Q8H 03/27/21 05:11 CBC WITH AUTO DIFF [HEME] AM COMPREHENSIVE METABOLIC PN,CMP [CHEM] AM 03/28/21 05:11 CBC WITH AUTO DIFF [HEME] AM COMPREHENSIVE METABOLIC PN,CMP [CHEM] AM - Plan Plan:: 76-year-old female with left lower quadrant abdominal pain and bright red blood per rectum admitted for colitis and acute kidney injury. Hemoglobin has been stable at 10.8x2. Patient remains afebrile. WBC count down to 13. NPO. Continue IV Zosyn. Will advance diet once surgery visits her. Spoke with Dr. Hugo Fontanez who agreed to see the patient later today. We will follow up the recommendations regarding possible colonoscopy outpatient versus other. Discontinue Accu-Cheks q6hr. LR at 125 mL/h. Continue Protonix bid. Zofran prn. Follow-up pending blood cultures, urine cultures and stool cultures. Monitor on telemetry. IV morphine 2 mg q4hr prn. Continue holding patient's aspirin, Plavix, lisinopril and Lasix.
[2021-03-26] MEDS: Piperacillin/Tazobactam 2.25 GM in Sodium Chloride 0.9% 50 ML IV SCH ×2 (15:10→23:48)
--- NOTE | 2021-03-26 17:57 | CONS ---
DATE OF CONSULTATION: 03/26/2021 DATE OF : 1945 PRIMARY CARE PHYSICIAN: Scarlett Bridges NP HISTORY OF PRESENT ILLNESS: The patient is a pleasant 76-year-old female who 2 days ago said she has had nausea, vomiting, and diarrhea. She said they all came on fairly quickly 2 days ago. She said she had 2 bowel movements that were fairly loose and after that noticed some blood in her stool that then turned to what she called straight blood. She said she was also somewhat incontinent of the stool. She did go to the ER yesterday when she was not getting better. The patient says she had some left lower abdominal pain. This pain waxes and wanes. She says it is kind of a dull ache, that then builds up to a sharp pain, and then dissipates. The pain does not radiate anywhere. The patient has never had a colonoscopy before. The patient is on Plavix. The patient was evaluated in the ER and was found to have elevated white cell count of 19.85. She also had a CT scan done, which showed fluid in the distant colon consistent with diarrheal illness. She also had multiple large cysts in both kidneys. The patient was admitted to the Medicine Service. I was consulted to stay this afternoon for a possible colonoscopy. Today, the patient has not had any bowel movements. She says her left lower abdomen pain has gotten quite a bit better. She denies any nausea or vomiting. She has been started on a liquid diet, which she says is going down well. Her hemoglobin has been stable for the last 3 blood draws at 10.8. PAST MEDICAL HISTORY: Significant for: 1. Peripheral artery disease. 2. Hypercholesterolemia. 3. Hypertension. 4. Nicotine dependence. CURRENT HOME MEDICATIONS: 1. Hydrochlorothiazide 50 mg p.o. daily. 2. Lipitor 40 mg p.o. daily. 3. Lisinopril 20 mg p.o. daily. 4. Lasix 40 mg p.o. daily. 5. Plavix 75 mg p.o. daily. 6. Aspirin daily. ALLERGIES: No known drug allergies. PAST SURGICAL HISTORY: 1. Bilateral iliac stents. 2. Removal of left fallopian tube. FAMILY HISTORY: Mother had multiple strokes and also ND. SOCIAL HISTORY: 1. The patient smokes about half a pack of cigarettes per day. 2. Denies any drug use. 3. Denies really any alcohol use. She does live at home with her who is having beginning stages of dementia. REVIEW OF SYSTEMS: Complete 12 plus review of systems was done and was negative expect those in the HPI. IMAGING: Reviewed and as per HPI. LABORATORY DATA: Show white cell count 12.94, hemoglobin 10.8, and platelet count is 162. Sodium 140, potassium 4.6, BUN 54, creatinine 2.7, and glucose 104. COVID negative. PHYSICAL EXAMINATION: GENERAL: The patient is lying comfortably in her bed. She is alert and oriented in no acute distress. LUNGS: Clear to auscultation bilaterally. No rhonchi or wheezes are heard. HEART: Regular rate and rhythm. No murmurs appreciated. ABDOMEN: Soft, maybe some mild bloating. She does have some tenderness in the left lower abdomen. No rebound. No peritonitis. NEUROLOGICAL: Grossly no motor or neurologic deficits noted. ASSESSMENT/PLAN: The patient is a pleasant 76-year-old female who 2 days ago started having nausea, vomiting, and diarrhea. This was followed by episode of bright red blood. She has not had any bowel movements today. She does complain of lower abdomen pain that she reports is getting improved. She has an elevated white cell count and has been started on antibiotics. She had a CT scan, which showed some fluid in her colon. I did go over the patient that potentially she has some type of infectious process going on with nausea, vomiting, and diarrhea. She does not appear to be actively bleeding because she has had no bowel movements today and her hemoglobin has been stable for last 3 draws. I went over if she continues to improve, she can get EGD and colonoscopy as an outpatient once her symptoms resolve. Potentially, she has some type of colitis. If her pain persists, I would repeat the CT scan. The patient says she understands. The patient preferred to hold on any scope or any other intervention if she is able to because she says she needs to get home and help out her . I did go over the patient it is important that she takes care of herself first, so she is then able to take care of her . She says she understands. I did talk with the Medicine team and Dr. Domingo. I will continue to follow the patient. NURIA MARX /[id number] TRAN
[2021-03-27] MEDS: Lactated Ringers 1,000 ML IV SCH (01:26)
[2021-03-27] MEDS: Piperacillin/Tazobactam 2.25 GM in Sodium Chloride 0.9% 50 ML IV SCH (06:31)
[2021-03-27] MEDS: Pantoprazole 40 MG in Sodium Chloride 0.9% 10 ML IV SCH (08:12)
[2021-03-27 08:30] LABS: CARBON DIOXIDE,CO2 23.7 mmol/L (21.0-32.0); POTASSIUM,K 3.9 mmol/L (3.5-5.1)
--- NOTE | 2021-03-27 11:19 | PN ---
SUBJECTIVE: The patient says she is feeling much better today. She says still no bowel movement. The patient's abdominal pain is much improved. She says she tolerates her liquid diet, and she has been advanced to a soft diet. She had toast this morning and some egg. She said it went down fine, no issue. She has been up and ambulating, urinating, and passing flatus. The patient's only complaint is that she is feeling a little swollen today. Her Lasix and diuretics have been held by the Medicine team because of her acute kidney injury with a high creatinine. She says she is feeling a little more water retention and having little bit of shortness of breath that she feels when she does get at lot of retention. OBJECTIVE: GENERAL: The patient is lying comfortably in her bed. She is alert and oriented, in no acute distress. VITALS: Temperature is 98.6, pulse is 54, blood pressure is 136/49, saturating 92% on room air. ABDOMEN: Soft and nondistended. She still has a little bit of left lower abdominal tenderness to palpation. This is greatly improved from yesterday. No signs of peritonitis or rebound tenderness. LABORATORY DATA: White cell count is 7.83, hemoglobin is 9.9, platelet count is 146. Creatinine is down to 1.8 and BUN is down to 33. ASSESSMENT AND PLAN: The patient is a pleasant 76-year-old female who had nausea and vomiting, after that had a loose stool. After loose stool, she has had episode of bright red blood. She has not had any bowel movement about the last day and a half. She also had some left lower abdominal pain, which is now resolving. I did go over with the patient again, she could have some type of gastritis, nausea, vomiting, and diarrhea or some type of colitis, this being potentially an infectious, inflammatory, or ischemic. Currently, the patient is feeling much better. I did go over with the patient again that she should undergo colonoscopy, may be an esophagogastroduodenoscopy. The patient said she would like to do that, but would want to wait until an outpatient for this. All the patient's questions were answered. Did discuss the patient with the Medicine team. The patient may follow up in clinic to go for a colonoscopy as an outpatient. She should come back sooner if her abdomen pain does not resolve, comes back, or she notices more blood in her stool. NURIA MARX /[id number]
[2021-03-27 12:30] VITALS: BP 144/52; PULSE 59
--- NOTE | 2021-03-27 14:55 | PCM.DCSUM1 ---
<Kelvin Grullon - Last Filed: 03/27/21 18:48> Discharge Summary - Hospital Course Free Text/Narrative:: 76-year-old female with history of hypertension and bilateral iliac artery stents, on Plavix presents to the ER complaining of left lower quadrant abdominal pain and bloody stools on 03-25-21. 2 days prior to admission patient states that she felt dizzy and felt like she was going to faint. Patient has no prior history of bright red blood per rectum, ulcers, peptic ulcer disease, denies recent NSAID use. Patient does take Plavix and aspirin. Patient states that she saw her offset assistant press operator Dr. Arroyo 4 weeks ago in [place] due to swelling in her legs. Her hydrochlorothiazide was discontinued and she was started on Lasix 40 mg daily. ER Course: T97.2. Pulse 88. RR 18. BP 102/62. 97% RA. Lactic acid 1.3. WBC 19.85. Hgb 13.1. Platelet 219. INR 1.01. Sodium 136. Potassium 4.2. BUN 62. Creatinine 2.9. GFR 15.8. Glucose 116. Alk phos 117. UA shows small occult blood and trace leukocyte esterase. EKG: Normal sinus rhythm, biphasic T waves in V1 to V4. Nonspecific ST/T findings. Blood cultures pending. Urine culture pending. Occult blood pending. Normal saline at 150 mL/h. CT Abd/Pel wo contrast: Prominent food content of distal colon consistent with a diarrheal illness, large bilateral renal cyst, bilateral common iliac artery stents. Stool culture pending including Campylobacter and H. pylori. Patient started on IV Zosyn 3.375 g. Patient was admitted for left lower quadrant renal pain, bright red blood per rectum, SOFÍA. Patient was started on IV Zosyn, originally made n.p.o. diet was advanced and tolerated. Patient did not have any other episodes of bright red blood per rectum during admission course, patient did not complain of nausea, vomiting or any episodes of vomiting blood at discharge. Per surgery patient may schedule EGD and/or colonoscopy at an outpatient visit. At discharge patient advised to hold Plavix and aspirin until follow-up with primary care physician. Patient also advised to hold lisinopril due to SOFÍA on admission. Patient may resume Lasix medication at discharge but advised to take it every other day. Patient prescribed Augmentin for suspected bacterial infection for 5 days. - Discharge Data Discharge Date: 03/27/21 Discharge Disposition: Home, Self-Care 01 Condition: Good - Referral to Home Health Primary Care Physician: Scarlett Bridges NP - Patient Summary/Data Consults: Consultations 03/25/21 20:00 Consult to Physician [CONS] Routine - Patient Instructions Diet: Usual Diet as Tolerated Notify Provider of: Fever, Increased Pain, Nausea and/or Vomiting Other/Special Instructions: Due to your recent history of bleeding per rectum we have advised holding Plavix and aspirin until you discuss medications with your primary care provider at next follow-up. May resume based on PCP recommmendation. Also advised to hold lisinopril due to acute kidney injury following conversation with primary care provider. Patient may take prescribed Lasix medication every other day, starting today. You were prescribed Augmentin antibiotic for suspected infection of the intestine. Take medication as prescribed, if experiencing any side effects such as abdominal pain, bloating, cramping, diarrhea please inform primary care physician. Report any symptoms abdominal pain, bright red blood per rectum, fever, chills, nausea, vomiting to primary care physician immediately. - Discharge Plan *PRESCRIPTION DRUG MONITORING PROGRAM REVIEWED*: Not Applicable *COPY OF PRESCRIPTION DRUG MONITORING REPORT IN PATIENT BEBE: Not Applicable Prescriptions/Med Rec: Amoxicillin/Potassium Clav [Augmentin 875-125 Tablet] 1 each PO BID 5 Days #10 tablet Home Medications: Home Meds atorvaSTATin [Lipitor] 40 mg PO BEDTIME 03/26/21 [History] Amoxicillin/Potassium Clav [Augmentin 875-125 Tablet] 1 each PO BID 5 Days #10 tablet 03/27/21 [Rx] Furosemide 40 mg PO Q48H #0 03/27/21 [Rx] Patient Handouts: Amoxicillin; Clavulanic Acid Tablets, Colitis Referrals: Scarlett Bridges NP [Primary Care Provider] - 04/01/21 10:45 am - Discharge Summary/Plan Comment DC Time >30 min.: Yes Total # of Minutes for Discharge Time: 40 - General Info Date of Service: 03/27/21 - Review of Systems General: Denies: Fever Pulmonary: Denies: Shortness of Breath, Cough Cardiovascular: Denies: Chest Pain Gastrointestinal: Denies: Abdominal Pain, Decreased Appetite, Nausea, Vomiting Neurological: Denies: Confusion, Dizziness Psychiatric: Denies: Confusion - Patient Data Vitals - Most Recent: Last Vital Signs Temp 98.8 F 03/27/21 12:00 Pulse 59 L 03/27/21 12:00 Resp 18 03/27/21 12:00 BP 144/52 H 03/27/21 12:00 Pulse Ox 95 03/27/21 12:00 Orthostatic Blood Pressure [ 97/61 Standing] Orthostatic Blood Pressure [ 107/92 Sitting] Orthostatic Blood Pressure [ 113/55 Supine] Weight - Most Recent: 69.031 kg I&O - Last 24 hours: Intake & Output 03/26/21 03/27/21 03/27/21 22:59 06:59 14:59 Intake Total 1464 2629 60 Output Total 900 1050 Balance 564 1579 60 Lab Results - Last 24 hrs: Laboratory Results - last 24 hr 03/26/21 03/26/21 03/27/21 Range/Units 15:06 16:48 06:29 WBC 7.83 (4.0-11.0) K/uL RBC 3.06 L (4.30-5.90) M/uL Hgb 10.8 L 9.9 L (12.0-16.0) g/dL Hct 31.9 L 29.7 L (36.0-46.0) % MCV 97.1 (80.0-98.0) fL MCH 32.4 H (27.0-32.0) pg MCHC 33.3 (31.0-37.0) g/dL RDW Std Deviation 51.0 (28.0-62.0) fl RDW Coeff of Chyna 14 (11.0-15.0) % Plt Count 146 L (150-400) K/uL MPV 11.00 (7.40-12.00) fL Neut % (Auto) 74.0 (48.0-80.0) % Lymph % (Auto) 17.9 (16.0-40.0) % [place] % (Auto) 6.1 (0.0-15.0) % Eos % (Auto) 1.7 (0.0-7.0) % Baso % (Auto) 0.3 (0.0-1.5) % Neut # (Auto) 5.8 H (1.4-5.7) K/uL Lymph # (Auto) 1.4 (0.6-2.4) K/uL [place] # (Auto) 0.5 (0.0-0.8) K/uL Eos # (Auto) 0.1 (0.0-0.7) K/uL Baso # (Auto) 0.0 (0.0-0.1) K/uL Nucleated RBC % 0.0 /100WBC Nucleated RBCs # 0 K/uL Sodium (136-145) mmol/L Potassium (3.5-5.1) mmol/L Chloride (98-107) mmol/L Carbon Dioxide (21.0-32.0) mmol/L BUN (7.0-18.0) mg/dL Creatinine (0.6-1.0) mg/dL Est Cr Clr Drug Dosing mL/min Estimated GFR (MDRD) ml/min Glucose (74-106) mg/dL POC Glucose 143 H (70-99) mg/dL Calcium (8.5-10.1) mg/dL Total Bilirubin (0.2-1.0) mg/dL AST (15-37) IU/L ALT (14-63) IU/L Alkaline Phosphatase (46-116) U/L Total Protein (6.4-8.2) g/dL Albumin (3.4-5.0) g/dL Globulin (2.6-4.0) g/dL Albumin/Globulin Ratio (0.9-1.6) 03/27/21 Range/Units 06:29 WBC (4.0-11.0) K/uL RBC (4.30-5.90) M/uL Hgb (12.0-16.0) g/dL Hct (36.0-46.0) % MCV (80.0-98.0) fL MCH (27.0-32.0) pg MCHC (31.0-37.0) g/dL RDW Std Deviation (28.0-62.0) fl RDW Coeff of Chyna (11.0-15.0) % Plt Count (150-400) K/uL MPV (7.40-12.00) fL Neut % (Auto) (48.0-80.0) % Lymph % (Auto) (16.0-40.0) % [place] % (Auto) (0.0-15.0) % Eos % (Auto) (0.0-7.0) % Baso % (Auto) (0.0-1.5) % Neut # (Auto) (1.4-5.7) K/uL Lymph # (Auto) (0.6-2.4) K/uL [place] # (Auto) (0.0-0.8) K/uL Eos # (Auto) (0.0-0.7) K/uL Baso # (Auto) (0.0-0.1) K/uL Nucleated RBC % /100WBC Nucleated RBCs # K/uL Sodium 141 (136-145) mmol/L Potassium 3.9 (3.5-5.1) mmol/L Chloride 108 H (98-107) mmol/L Carbon Dioxide 23.7 (21.0-32.0) mmol/L BUN 33 H (7.0-18.0) mg/dL Creatinine 1.8 H (0.6-1.0) mg/dL Est Cr Clr Drug Dosing 24.79 mL/min Estimated GFR (MDRD) 27.4 ml/min Glucose 73 L (74-106) mg/dL POC Glucose (70-99) mg/dL Calcium 8.2 L (8.5-10.1) mg/dL Total Bilirubin 0.7 (0.2-1.0) mg/dL AST 20 (15-37) IU/L ALT 15 (14-63) IU/L Alkaline Phosphatase 75 (46-116) U/L Total Protein 5.5 L (6.4-8.2) g/dL Albumin 2.5 L (3.4-5.0) g/dL Globulin 3.0 (2.6-4.0) g/dL Albumin/Globulin Ratio 0.8 L (0.9-1.6) MARCOS Results - Last 24 hrs: Microbiology 03/25/21 17:08 Aerobic Blood Culture - Preliminary Blood - Venous - Lab Draw NO GROWTH AFTER 1 DAY Anaerobic Blood Culture - Preliminary NO GROWTH AFTER 1 DAY 03/25/21 17:01 Aerobic Blood Culture - Preliminary Blood - Venous NO GROWTH AFTER 1 DAY Anaerobic Blood Culture - Preliminary NO GROWTH AFTER 1 DAY Med Orders - Current: Current Medications Albuterol/Ipratropium (Albuterol/Ipratropium 3.0-0.5 Mg/3 Ml Neb Soln) 3 ml NEB Q4HRRT PRN PRN Reason: Shortness Of Breath/wheezing Pantoprazole Sodium 40 mg/ (Sodium Chloride) 10 mls @ 300 mls/hr IV Q12H [facility] Last Admin: 03/27/21 08:12 Dose: 300 mls/hr Documented by: Piperacillin Sod/Tazobactam (Sod 2.25 gm/ Sodium Chloride) 50 mls @ 100 mls/hr IV Q8H [facility] Last Admin: 03/27/21 06:31 Dose: 100 mls/hr Documented by: Morphine Sulfate (Morphine 2 Mg/Ml Syringe) 2 mg IVPUSH Q4H PRN PRN Reason: Pain Last Admin: 03/26/21 17:55 Dose: 2 mg Documented by: Ondansetron HCl (Ondansetron 4 Mg/2 Ml Sdv) 4 mg IVPUSH Q4H PRN PRN Reason: Nausea/Vomiting Discontinued Medications Sodium Chloride (Normal Saline) 1,000 mls @ 150 mls/hr IV STAT ONE Stop: 03/25/21 22:26 Last Admin: 03/25/21 15:51 Dose: 150 mls/hr Documented by: Piperacillin Sod/Tazobactam (Sod 3.375 gm/ Sodium Chloride) 50 mls @ 100 mls/hr IV ONETIME ONE Stop: 03/25/21 19:05 Last Admin: 03/25/21 18:52 Dose: 100 mls/hr Documented by: Lactated Ringer's (Ringers, Lactated) 1,000 mls @ 125 mls/hr IV ASDIRECTED [facility] Last Admin: 03/27/21 01:26 Dose: 125 mls/hr Documented by: Piperacillin Sod/Tazobactam (Sod 3.375 gm/ Sodium Chloride) 50 mls @ 100 mls/hr IV Q6H [facility] Stop: 03/26/21 08:00 Last Admin: 03/26/21 06:04 Dose: 100 mls/hr Documented by: Pantoprazole Sodium (Pantoprazole 40 Mg Vial) 40 mg IV Q12HR [facility] Last Admin: 03/25/21 21:07 Dose: 40 mg Documented by: - Exam Lungs: Reports: Clear to Auscultation, Normal Respiratory Effort Cardiovascular: Reports: Regular Rate, Regular Rhythm GI/Abdominal Exam: Soft, Non-Tender <Danny Fontanez Gabby - Last Filed: 03/30/21 15:28> Discharge Summary - Referral to Home Health Primary Care Physician: Scarlett Bridges NP - Patient Summary/Data Consults: Consultations 03/25/21 20:00 Consult to Physician [CONS] Routine - Patient Data Vitals - Most Recent: Last Vital Signs Temp 37.1 C 03/27/21 12:00 Pulse 59 L 03/27/21 12:00 Resp 18 03/27/21 12:00 BP 144/52 H 03/27/21 12:00 Pulse Ox 95 03/27/21 12:00 Orthostatic Blood Pressure [ 97/61 Standing] Orthostatic Blood Pressure [ 107/92 Sitting] Orthostatic Blood Pressure [ 113/55 Supine] MARCOS Results - Last 24 hrs: Microbiology 03/25/21 17:08 Aerobic Blood Culture - Preliminary Blood - Venous - Lab Draw NO GROWTH AFTER 4 DAYS Anaerobic Blood Culture - Preliminary NO GROWTH AFTER 4 DAYS 03/25/21 17:01 Aerobic Blood Culture - Preliminary Blood - Venous NO GROWTH AFTER 4 DAYS Anaerobic Blood Culture - Preliminary NO GROWTH AFTER 4 DAYS Med Orders - Current: Current Medications Discontinued Medications Albuterol/Ipratropium (Albuterol/Ipratropium 3.0-0.5 Mg/3 Ml Neb Soln) 3 ml NEB Q4HRRT PRN PRN Reason: Shortness Of Breath/wheezing Sodium Chloride (Normal Saline) 1,000 mls @ 150 mls/hr IV STAT ONE Stop: 03/25/21 22:26 Last Admin: 03/25/21 15:51 Dose: 150 mls/hr Documented by: Piperacillin Sod/Tazobactam (Sod 3.375 gm/ Sodium Chloride) 50 mls @ 100 mls/hr IV ONETIME ONE Stop: 03/25/21 19:05 Last Admin: 03/25/21 18:52 Dose: 100 mls/hr Documented by: Lactated Ringer's (Ringers, Lactated) 1,000 mls @ 125 mls/hr IV ASDIRECTED [facility] Last Admin: 03/27/21 01:26 Dose: 125 mls/hr Documented by: Piperacillin Sod/Tazobactam (Sod 3.375 gm/ Sodium Chloride) 50 mls @ 100 mls/hr IV Q6H [facility] Stop: 03/26/21 08:00 Last Admin: 03/26/21 06:04 Dose: 100 mls/hr Documented by: Pantoprazole Sodium 40 mg/ (Sodium Chloride) 10 mls @ 300 mls/hr IV Q12H [facility] Last Admin: 03/27/21 08:12 Dose: 300 mls/hr Documented by: Piperacillin Sod/Tazobactam (Sod 2.25 gm/ Sodium Chloride) 50 mls @ 100 mls/hr IV Q8H [facility] Last Admin: 03/27/21 06:31 Dose: 100 mls/hr Documented by: Morphine Sulfate (Morphine 2 Mg/Ml Syringe) 2 mg IVPUSH Q4H PRN PRN Reason: Pain Last Admin: 03/26/21 17:55 Dose: 2 mg Documented by: Ondansetron HCl (Ondansetron 4 Mg/2 Ml Sdv) 4 mg IVPUSH Q4H PRN PRN Reason: Nausea/Vomiting Pantoprazole Sodium (Pantoprazole 40 Mg Vial) 40 mg IV Q12HR [facility] Last Admin: 03/25/21 21:07 Dose: 40 mg Documented by: - Free Text/Narrative Note: I have seen and examined the patient with the resident. I have discussed findings and treatment plan with the resident. I agree with the assessment and plan in the following note.
== END 2021-03-27 15:50 | disposition home or self-care (01) | DRG 683 ==
LOC: MW.ED 14:15 → MW.MS 18:37
PROVIDERS: ADMIT Student in an Organized Health Care Education/Training Program; ATTEND Student in an Organized Health Care Education/Training Program
DX: N17.9 Acute kidney failure, unspecified (principal); K62.5 Hemorrhage of anus and rectum; K52.9 Noninfective gastroenteritis and colitis, unspecified; F17.200 Nicotine dependence, unspecified, uncomplicated; I10 Essential (primary) hypertension; I73.9 Peripheral vascular disease, unspecified; E78.00 Pure hypercholesterolemia, unspecified; F17.210 Nicotine dependence, cigarettes, uncomplicated; Z20.822 Contact with and (suspected) exposure to COVID-19; Z79.82 Long term (current) use of aspirin; Z79.01 Long term (current) use of anticoagulants; Z79.899 Other long term (current) drug therapy; Z95.5 Presence of coronary angioplasty implant and graft; Z79.02 Long term (current) use of antithrombotics/antiplatelets
CPT/HCPCS: 36415; 74176; 80053; 81001; 83605; 83735; 84100; 85025; 85610; 86850; 86900; 86901; 87040 ×2; 87086; 93005; 99285; J7030; U0002; 82947; 85014; 85018; C9113; J2270; J2543; J7120

== ENCOUNTER 2023-09-25 23:10 | Inpatient (IN) | payer MEDICARE, MEDICAID ==
[2023-09-26] MEDS: Morphine 4 MG/ML Syringe IVPUSH ONE ×2 (00:11→01:40)
[2023-09-26 00:14] LABS: BASOPHILS ABSOLUTE AUTO 0.05 K/uL (0.00-0.20); BASOPHILS PERCENT AUTO 0.2 % (0.0-1.0); HEMATOCRIT 38.2 % (37.0-47.0); HEMOGLOBIN 12.6 g/dL (12.0-16.0); IMMATURE GRAN PERCENT AUTO 0.8 % (0.0-0.4); LYMPHOCYTES ABSOLUTE AUTO 1.61 K/uL (1.00-4.80); LYMPHOCYTES PERCENT AUTO 6.4 % (24.0-44.0); MEAN CORPUSCULAR HEMOGLOBIN 33.2 pg (28.0-32.0); MEAN CORPUSCULAR VOLUME 100.5 fL (83.0-99.0); MEAN PLATELET VOLUME 10.4 fL (9.4-12.3); MONOCYTES ABSOLUTE AUTO 1.26 K/uL (0.00-0.80); NEUTROPHILS ABSOLUTE AUTO 21.98 K/uL (1.80-7.70); NEUTROPHILS PERCENT AUTO 87.6 % (41.0-71.0); PLATELET COUNT,PLT 257 K/uL (150-400)
[2023-09-26] MEDS: Sodium Chloride 0.9% 10 ML Syringe FLUSH PRN (00:16)
[2023-09-26] MEDS: Morphine 4 MG/ML Syringe ONE (00:16)
[2023-09-26] MEDS: Sodium Chloride 0.9% 2.5 ML Syringe FLUSH PRN (00:16)
[2023-09-26] MEDS: Sodium Chloride 0.9% 1,000 ML IV ONE (00:17)
[2023-09-26 00:46] LABS: ALBUMIN 3.3 g/dL (3.4-5.0); BILIRUBIN TOTAL 0.8 mg/dL (0.2-1.0); CALCIUM 8.7 mg/dL (8.5-10.1); CARBON DIOXIDE,CO2 22.8 mmol/L (21.0-32.0); CREATININE 3.8 mg/dL (0.6-1.0); EST CRCL DRUG DOSING (CG) 11.27 mL/min; POTASSIUM,K 6.4 mmol/L (3.5-5.1); PROTEIN TOTAL,TP 6.5 g/dL (6.4-8.2)
[2023-09-26 01:05] LABS: LACTIC ACID 3.8 mmol/L (0.4-2.0)
[2023-09-26] MEDS: Albuterol 0.083% 2.5 MG/3 ML Neb Soln NEB ONE (01:17)
[2023-09-26] MEDS: Furosemide 40 MG/4 ML VIAL IVPUSH STA (01:19)
[2023-09-26] MEDS: Calcium Gluconate 10% 1 GM/10 ML SDV IVPUSH ONE (01:19)
[2023-09-26 01:51] LABS: APPEARANCE,URINE CLEAR; BILIRUBIN,URINE NEGATIVE (NEGATIVE); COLOR,URINE YELLOW; GLUCOSE,URINE NEGATIVE (NEGATIVE); KETONES,URINE NEGATIVE (NEGATIVE); LEUKOCYTE ESTERASE,URINE NEGATIVE (NEGATIVE); NITRITE,URINE NEGATIVE (NEGATIVE); OCCULT BLOOD,URINE NEGATIVE (NEGATIVE); PROTEIN,URINE NEGATIVE (NEGATIVE); UROBILINOGEN,URINE 0.2 EU/dL (<2.0)
[2023-09-26] MEDS: Sodium Chloride 0.9% 1,000 ML IV STA (02:14)
[2023-09-26 02:25] LABS: CREATININE,URINE RAND 69.7 mg/dL
[2023-09-26 03:00] LABS: CALCIUM 8.3 mg/dL (8.5-10.1); CARBON DIOXIDE,CO2 22.7 mmol/L (21.0-32.0); CREATININE 3.7 mg/dL (0.6-1.0); EST CRCL DRUG DOSING (CG) 11.58 mL/min; POTASSIUM,K 5.4 mmol/L (3.5-5.1)
[2023-09-26] MEDS ORDERED: Naloxone 0.4 MG/ML SDV IVPUSH PRN (04:57)
[2023-09-26] MEDS ORDERED: Ondansetron 4 MG/2 ML SDV IVPUSH PRN ×2 (04:58→07:58)
[2023-09-26] MEDS: Sodium Chloride 0.9% 1,000 ML IV SCH (05:14)
[2023-09-26] MEDS: Morphine 2 MG/ML SYRINGE IVPUSH PRN (05:16)
[2023-09-26] MEDS ORDERED: Sodium Chloride 0.9% 2.5 ML Syringe FLUSH PRN (07:56)
[2023-09-26] MEDS ORDERED: Sodium Chloride 0.9% 10 ML Syringe FLUSH PRN (07:56)
[2023-09-26] MEDS ORDERED: Morphine 2 MG/ML SYRINGE IVPUSH PRN (07:58)
[2023-09-26 08:00] LABS: BASOPHILS ABSOLUTE AUTO 0.03 K/uL (0.00-0.20); BASOPHILS PERCENT AUTO 0.1 % (0.0-1.0); HEMATOCRIT 31.3 % (37.0-47.0); HEMOGLOBIN 10.3 g/dL (12.0-16.0); IMMATURE GRAN PERCENT AUTO 0.5 % (0.0-0.4); LYMPHOCYTES ABSOLUTE AUTO 1.06 K/uL (1.00-4.80); LYMPHOCYTES PERCENT AUTO 5.1 % (24.0-44.0); MEAN CORPUSCULAR HEMOGLOBIN 32.8 pg (28.0-32.0); MEAN CORPUSCULAR HGB CONC 32.9 g/dL (32.0-36.0); MEAN CORPUSCULAR VOLUME 99.7 fL (83.0-99.0); MEAN PLATELET VOLUME 10.2 fL (9.4-12.3); MONOCYTES ABSOLUTE AUTO 0.83 K/uL (0.00-0.80); NEUTROPHILS ABSOLUTE AUTO 18.89 K/uL (1.80-7.70); NEUTROPHILS PERCENT AUTO 90.3 % (41.0-71.0); PLATELET COUNT,PLT 176 K/uL (150-400); RED BLOOD CELL COUNT 3.14 M/uL (4.10-5.30); WHITE BLOOD CELL COUNT,WBC 20.91 K/uL (3.9-11.3)
[2023-09-26] MEDS: Morphine 2 MG/ML SYRINGE IVPUSH ONE (08:05)
[2023-09-26 08:36] LABS: A/G RATIO 0.9 (0.9-1.6); ALBUMIN 2.5 g/dL (3.4-5.0); BILIRUBIN TOTAL 0.6 mg/dL (0.2-1.0); CALCIUM 8.2 mg/dL (8.5-10.1); CARBON DIOXIDE,CO2 19.8 mmol/L (21.0-32.0); CREATININE 3.2 mg/dL (0.6-1.0); EST CRCL DRUG DOSING (CG) 13.02 mL/min; POTASSIUM,K 4.9 mmol/L (3.5-5.1); PROTEIN TOTAL,TP 5.4 g/dL (6.4-8.2)
[2023-09-26] MEDS: Heparin Sodium 5,000 Units/ML Vial SUBCUT SCH (08:57)
[2023-09-26] MEDS: Pantoprazole 40 MG in Sodium Chloride 0.9% 10 ML IVPUSH ONE (08:58)
[2023-09-26] MEDS: Sodium Chloride 0.9% 500 ML IV SCH (09:14)
[2023-09-26] MEDS: HYDROmorphone 1 MG/ML Syringe IVPUSH PRN (09:15)
[2023-09-27 05:44] LABS: BASOPHILS ABSOLUTE AUTO 0.02 K/uL (0.00-0.20); BASOPHILS PERCENT AUTO 0.1 % (0.0-1.0); HEMATOCRIT 28.5 % (37.0-47.0); HEMOGLOBIN 9.9 g/dL (12.0-16.0); IMMATURE GRAN ABSOLUTE AUTO 0.08 K/uL (0.00-0.05); IMMATURE GRAN PERCENT AUTO 0.5 % (0.0-0.4); LYMPHOCYTES ABSOLUTE AUTO 1.02 K/uL (1.00-4.80); LYMPHOCYTES PERCENT AUTO 6.1 % (24.0-44.0); MEAN CORPUSCULAR HEMOGLOBIN 34.9 pg (28.0-32.0); MEAN CORPUSCULAR HGB CONC 34.7 g/dL (32.0-36.0); MEAN CORPUSCULAR VOLUME 100.4 fL (83.0-99.0); MEAN PLATELET VOLUME 10.6 fL (9.4-12.3); MONOCYTES PERCENT AUTO 3.6 % (0.0-8.0); NEUTROPHILS ABSOLUTE AUTO 15.11 K/uL (1.80-7.70); NEUTROPHILS PERCENT AUTO 89.7 % (41.0-71.0); PLATELET COUNT,PLT 166 K/uL (150-400); RED BLOOD CELL COUNT 2.84 M/uL (4.10-5.30); WHITE BLOOD CELL COUNT,WBC 16.83 K/uL (3.9-11.3)
[2023-09-27 06:08] LABS: CALCIUM 8.3 mg/dL (8.5-10.1); CARBON DIOXIDE,CO2 22.4 mmol/L (21.0-32.0); CREATININE 2.2 mg/dL (0.6-1.0); EST CRCL DRUG DOSING (CG) 18.93 mL/min; POTASSIUM,K 4.7 mmol/L (3.5-5.1)
[2023-09-27] MEDS ORDERED: ALPRAZolam 0.25 MG Tab PO PRN (09:37)
[2023-09-27] MEDS: Aspirin 81 MG Tab.Chew PO SCH (11:06)
[2023-09-27] MEDS: Clopidogrel 75 MG Tab PO SCH (11:06)
[2023-09-27] MEDS: Pantoprazole 40 MG Tab.CR PO SCH (11:06)
[2023-09-27] MEDS: Acetaminophen 325 MG Tab PO PRN (12:53)
[2023-09-27] MEDS: atorvaSTATin 40 MG Tab PO SCH (20:26)
[2023-09-28 06:18] LABS: BASOPHILS ABSOLUTE AUTO 0.01 K/uL (0.00-0.20); BASOPHILS PERCENT AUTO 0.1 % (0.0-1.0); EOSINOPHILS ABSOLUTE AUTO 0.03 K/uL (0.00-0.45); EOSINOPHILS PERCENT AUTO 0.3 % (0.0-6.0); HEMATOCRIT 27.7 % (37.0-47.0); HEMOGLOBIN 9.1 g/dL (12.0-16.0); IMMATURE GRAN ABSOLUTE AUTO 0.05 K/uL (0.00-0.05); IMMATURE GRAN PERCENT AUTO 0.5 % (0.0-0.4); LYMPHOCYTES ABSOLUTE AUTO 0.81 K/uL (1.00-4.80); LYMPHOCYTES PERCENT AUTO 7.5 % (24.0-44.0); MEAN CORPUSCULAR HEMOGLOBIN 33.6 pg (28.0-32.0); MEAN CORPUSCULAR HGB CONC 32.9 g/dL (32.0-36.0); MEAN CORPUSCULAR VOLUME 102.2 fL (83.0-99.0); MEAN PLATELET VOLUME 10.4 fL (9.4-12.3); MONOCYTES ABSOLUTE AUTO 0.36 K/uL (0.00-0.80); MONOCYTES PERCENT AUTO 3.3 % (0.0-8.0); NEUTROPHILS ABSOLUTE AUTO 9.49 K/uL (1.80-7.70); NEUTROPHILS PERCENT AUTO 88.3 % (41.0-71.0); PLATELET COUNT,PLT 130 K/uL (150-400); RED BLOOD CELL COUNT 2.71 M/uL (4.10-5.30); WHITE BLOOD CELL COUNT,WBC 10.75 K/uL (3.9-11.3)
[2023-09-28 06:37] LABS: CALCIUM 8.1 mg/dL (8.5-10.1); CARBON DIOXIDE,CO2 19.1 mmol/L (21.0-32.0); CREATININE 1.6 mg/dL (0.6-1.0); EST CRCL DRUG DOSING (CG) 26.95 mL/min; MAGNESIUM 2.2 mg/dL (1.8-2.4); PHOSPHORUS 3.4 mg/dL (2.6-4.7); POTASSIUM,K 4.4 mmol/L (3.5-5.1)
[2023-09-28 12:20] VITALS: BP 139/65; PULSE 60
== END 2023-09-28 12:06 | disposition home or self-care (01) | DRG 391 ==
LOC: MW.ED 23:10 → MW.MS 09-26 03:21
PROVIDERS: ADMIT Family Medicine; ATTEND Family Medicine
DX: N17.9 Acute kidney failure, unspecified (principal); K52.9 Noninfective gastroenteritis and colitis, unspecified; R19.7 Diarrhea, unspecified; I11.0 Hypertensive heart disease with heart failure; N17.0 Acute kidney failure with tubular necrosis; I13.0 Hypertensive heart and chronic kidney disease with heart failure and stage 1 through stage 4 chronic kidney disease, or unspecified chronic kidney disease; C79.31 Secondary malignant neoplasm of brain; E87.5 Hyperkalemia; Z66 Do not resuscitate; N18.32 Chronic kidney disease, stage 3b; I50.9 Heart failure, unspecified; K21.9 Gastro-esophageal reflux disease without esophagitis; M19.90 Unspecified osteoarthritis, unspecified site; F17.210 Nicotine dependence, cigarettes, uncomplicated; D72.829 Elevated white blood cell count, unspecified; J44.9 Chronic obstructive pulmonary disease, unspecified; F41.9 Anxiety disorder, unspecified; E78.00 Pure hypercholesterolemia, unspecified; E86.1 Hypovolemia; N20.0 Calculus of kidney; Z79.02 Long term (current) use of antithrombotics/antiplatelets; Z79.899 Other long term (current) drug therapy; Z95.5 Presence of coronary angioplasty implant and graft; Z90.89 Acquired absence of other organs; Z98.890 Other specified postprocedural states; Z98.51 Tubal ligation status; Z79.82 Long term (current) use of aspirin; Z95.828 Presence of other vascular implants and grafts
CPT/HCPCS: 36415; 74176; 80048; 80053; 81003; 82570; 83605 ×2; 83690; 84300; 84484; 85025; 87040 ×2; 94640; 96361; 96374; 96375; 96376; 99285; J0612; J1940; J2270 ×2; J3490; J7030 ×2; 83735; 84100; 87045; 87046; 87324; 87449; 87899; 93010; 99291; A9270-GY; C9113; J1170; J1644; J7040; J7620-GY; J8540

== ENCOUNTER 2024-02-11 01:20 | Inpatient (IN) | payer MEDICARE, MEDICAID ==
[2024-02-11] MEDS: HYDROmorphone 0.5 MG/0.5 ML Syringe IVPUSH ONE ×2 (02:03→04:39)
[2024-02-11] MEDS: Sodium Chloride 0.9% 1,000 ML IV ONE ×3 (02:03→11:54)
[2024-02-11] MEDS: Sodium Chloride 0.9% 10 ML Syringe FLUSH PRN (02:04)
[2024-02-11] MEDS: Ondansetron 4 MG/2 ML SDV IVPUSH ONE (02:04)
[2024-02-11] MEDS: Sodium Chloride 0.9% 2.5 ML Syringe FLUSH PRN (02:04)
[2024-02-11 02:11] LABS: BASOPHILS ABSOLUTE AUTO 0.08 K/uL (0.00-0.20); BASOPHILS PERCENT AUTO 0.3 % (0.0-1.0); EOSINOPHILS ABSOLUTE AUTO 0.17 K/uL (0.00-0.45); EOSINOPHILS PERCENT AUTO 0.6 % (0.0-6.0); HEMATOCRIT 44.4 % (37.0-47.0); HEMOGLOBIN 14.3 g/dL (12.0-16.0); IMMATURE GRAN ABSOLUTE AUTO 0.24 K/uL (0.00-0.05); IMMATURE GRAN PERCENT AUTO 0.9 % (0.0-0.4); LYMPHOCYTES ABSOLUTE AUTO 4.65 K/uL (1.00-4.80); LYMPHOCYTES PERCENT AUTO 17.4 % (24.0-44.0); MEAN CORPUSCULAR HEMOGLOBIN 31.5 pg (28.0-32.0); MEAN CORPUSCULAR HGB CONC 32.2 g/dL (32.0-36.0); MEAN CORPUSCULAR VOLUME 97.8 fL (83.0-99.0); MONOCYTES PERCENT AUTO 2.2 % (0.0-8.0); NEUTROPHILS ABSOLUTE AUTO 20.95 K/uL (1.80-7.70); NEUTROPHILS PERCENT AUTO 78.6 % (41.0-71.0); PLATELET COUNT,PLT 330 K/uL (150-400); RED BLOOD CELL COUNT 4.54 M/uL (4.10-5.30); WHITE BLOOD CELL COUNT,WBC 26.69 K/uL (3.9-11.3)
[2024-02-11 02:23] LABS: INR 0.99 (0.86-1.11)
[2024-02-11 02:39] LABS: A/G RATIO 0.8 (0.9-1.6); ALBUMIN 3.5 g/dL (3.4-5.0); BILIRUBIN TOTAL 0.8 mg/dL (0.2-1.0); CALCIUM 9.8 mg/dL (8.5-10.1); CREATININE 2.7 mg/dL (0.6-1.0); EST CRCL DRUG DOSING (CG) 14.37 mL/min; POTASSIUM,K 4.2 mmol/L (3.5-5.1); PROTEIN TOTAL,TP 7.7 g/dL (6.4-8.2)
[2024-02-11 02:47] LABS: LACTIC ACID 3.8 mmol/L (0.4-2.0)
[2024-02-11] MEDS ORDERED: Piperacillin/Tazobactam 3.375 GM in Sodium Chloride 0.9% 100 ML IV ONE (02:51)
[2024-02-11] MEDS: Metoclopramide 10 MG/2 ML SDV IVPUSH ONE (03:19)
[2024-02-11] MEDS: HYDROmorphone 1 MG/ML Syringe IVPUSH ONE (03:19)
[2024-02-11] MEDS: Piperacillin/Tazobactam 4.5 GM in Sodium Chloride 0.9% 100 ML IV ONE (03:28)
[2024-02-11] MEDS: Iopamidol 755 MG/ML 500 ML Multipack Bottle IVPUSH STA (04:05)
[2024-02-11] MEDS: Sodium Chloride 0.9% 1,000 ML IV SCH (07:15)
[2024-02-11] MEDS: HYDROmorphone 1 MG/ML Syringe IVPUSH PRN (07:28)
[2024-02-11] MEDS ORDERED: Polyethylene Glycol 3350 Powder 17 GM Packet PO PRN ×2 (08:10→10:39)
[2024-02-11] MEDS: Piperacillin/Tazobactam 4.5 GM in Sodium Chloride 0.9% 100 ML IV SCH ×2 (08:43→13:55)
[2024-02-11] MEDS: Bisacodyl 10 MG Supp RECTAL ONE (09:02)
[2024-02-11] MEDS ORDERED: Sodium Chloride 0.9% 1,000 ML IV SCH (10:30)
[2024-02-11 11:46] LABS: CALCIUM 8.4 mg/dL (8.5-10.1); CARBON DIOXIDE,CO2 21.1 mmol/L (21.0-32.0); CREATININE 2.8 mg/dL (0.6-1.0); EST CRCL DRUG DOSING (CG) 14.08 mL/min; POTASSIUM,K 3.9 mmol/L (3.5-5.1)
[2024-02-11] MEDS: Polyethylene Glycol 3350 Powder 17 GM Packet PO SCH (12:00)
[2024-02-11 12:01] LABS: HEMOGLOBIN 12.5 g/dL (12.0-16.0); MEAN CORPUSCULAR HEMOGLOBIN 31.9 pg (28.0-32.0); MEAN CORPUSCULAR HGB CONC 32.9 g/dL (32.0-36.0); MEAN CORPUSCULAR VOLUME 96.9 fL (83.0-99.0); MEAN PLATELET VOLUME 10.4 fL (9.4-12.3); PLATELET COUNT,PLT 277 K/uL (150-400); RED BLOOD CELL COUNT 3.92 M/uL (4.10-5.30); WHITE BLOOD CELL COUNT,WBC 16.49 K/uL (3.9-11.3)
[2024-02-11 12:36] LABS: BAND ABSOLUTE MAN 3.46; BAND PERCENT MAN 21 %; LYMPHOCYTES ABSOLUTE MAN 0.99 K/uL (1.00-4.80); LYMPHOCYTES PERCENT MAN 6 % (24-44); MONOCYTES ABSOLUTE MAN 0.66 K/uL (0.00-0.80); MONOCYTES PERCENT MAN 4 % (0-8); SEG NEUTROPHILS ABSOLUTE MAN 11.38 K/uL (1.80-7.70); SEG NEUTROPHILS PERCENT MAN 69 % (41-71)
[2024-02-11 21:18] LABS: APPEARANCE,URINE CLEAR; BILIRUBIN,URINE NEGATIVE (NEGATIVE); COLOR,URINE YELLOW; GLUCOSE,URINE NEGATIVE (NEGATIVE); KETONES,URINE NEGATIVE (NEGATIVE); LEUKOCYTE ESTERASE,URINE NEGATIVE (NEGATIVE); NITRITE,URINE NEGATIVE (NEGATIVE); OCCULT BLOOD,URINE NEGATIVE (NEGATIVE); PH,URINE 5.5 (5.0-8.0); PROTEIN,URINE NEGATIVE (NEGATIVE); UROBILINOGEN,URINE 0.2 EU/dL (<2.0)
[2024-02-12 06:06] LABS: HEMATOCRIT 30.5 % (37.0-47.0); HEMOGLOBIN 9.9 g/dL (12.0-16.0); MEAN CORPUSCULAR HEMOGLOBIN 31.6 pg (28.0-32.0); MEAN CORPUSCULAR HGB CONC 32.5 g/dL (32.0-36.0); MEAN CORPUSCULAR VOLUME 97.4 fL (83.0-99.0); MEAN PLATELET VOLUME 10.3 fL (9.4-12.3); PLATELET COUNT,PLT 202 K/uL (150-400); RED BLOOD CELL COUNT 3.13 M/uL (4.10-5.30); WHITE BLOOD CELL COUNT,WBC 14.52 K/uL (3.9-11.3)
[2024-02-12 06:31] LABS: A/G RATIO 0.6 (0.9-1.6); BILIRUBIN TOTAL 0.7 mg/dL (0.2-1.0); CALCIUM 8.2 mg/dL (8.5-10.1); CARBON DIOXIDE,CO2 23.4 mmol/L (21.0-32.0); CREATININE 2.4 mg/dL (0.6-1.0); EST CRCL DRUG DOSING (CG) 16.95 mL/min; POTASSIUM,K 4.1 mmol/L (3.5-5.1); PROTEIN TOTAL,TP 5.2 g/dL (6.4-8.2)
[2024-02-12] MEDS ORDERED: ALPRAZolam 0.25 MG Tab PO PRN (09:37)
[2024-02-12] MEDS: Ketorolac 30 MG/ML SDV IVPUSH ONE (11:34)
[2024-02-12] MEDS: oxyCODONE 5 MG Tab PO PRN (17:54)
[2024-02-13 08:00] LABS: HEMATOCRIT 29.6 % (37.0-47.0); HEMOGLOBIN 9.6 g/dL (12.0-16.0); MEAN CORPUSCULAR HEMOGLOBIN 31.3 pg (28.0-32.0); MEAN CORPUSCULAR HGB CONC 32.4 g/dL (32.0-36.0); MEAN CORPUSCULAR VOLUME 96.4 fL (83.0-99.0); MEAN PLATELET VOLUME 10.5 fL (9.4-12.3); PLATELET COUNT,PLT 175 K/uL (150-400); RED BLOOD CELL COUNT 3.07 M/uL (4.10-5.30); WHITE BLOOD CELL COUNT,WBC 8.09 K/uL (3.9-11.3)
[2024-02-13 08:32] LABS: A/G RATIO 0.6 (0.9-1.6); ALBUMIN 1.9 g/dL (3.4-5.0); BILIRUBIN TOTAL 0.6 mg/dL (0.2-1.0); CALCIUM 8.3 mg/dL (8.5-10.1); CARBON DIOXIDE,CO2 19.9 mmol/L (21.0-32.0); CREATININE 1.8 mg/dL (0.6-1.0); EST CRCL DRUG DOSING (CG) 22.6 mL/min; POTASSIUM,K 3.4 mmol/L (3.5-5.1); PROTEIN TOTAL,TP 5.3 g/dL (6.4-8.2)
[2024-02-13 09:08] LABS: BAND ABSOLUTE MAN 0.16; BAND PERCENT MAN 2 %; BASOPHILS ABSOLUTE MAN 0.08 K/uL (0.00-0.20); BASOPHILS PERCENT MAN 1 % (0-1); EOSINOPHILS ABSOLUTE MAN 0.08 K/uL (0.00-0.45); EOSINOPHILS PERCENT MAN 1 % (0-6); LYMPHOCYTES ABSOLUTE MAN 0.57 K/uL (1.00-4.80); LYMPHOCYTES PERCENT MAN 7 % (24-44); METAMYELOCYTE ABSOLUTE MAN 0.16; METAMYELOCYTE PERCENT MAN 2 %; MONOCYTES ABSOLUTE MAN 0.32 K/uL (0.00-0.80); MONOCYTES PERCENT MAN 4 % (0-8); SEG NEUTROPHILS ABSOLUTE MAN 6.71 K/uL (1.80-7.70); SEG NEUTROPHILS PERCENT MAN 83 % (41-71)
[2024-02-13] MEDS: Loperamide 2 MG Cap PO ONE (10:11)
[2024-02-13 12:11] VITALS: BP 115/57; PULSE 78
== END 2024-02-13 13:00 | disposition hospice, home (50) | DRG 392 ==
LOC: MW.ED 01:20 → MW.MS 05:16
PROVIDERS: ADMIT Internal Medicine; ATTEND Internal Medicine
DX: K59.09 Other constipation (principal); C78.00 Secondary malignant neoplasm of unspecified lung; R10.84 Generalized abdominal pain; C79.31 Secondary malignant neoplasm of brain; C78.89 Secondary malignant neoplasm of other digestive organs; E86.0 Dehydration; K21.9 Gastro-esophageal reflux disease without esophagitis; Z51.5 Encounter for palliative care; I11.0 Hypertensive heart disease with heart failure; I50.9 Heart failure, unspecified; J44.9 Chronic obstructive pulmonary disease, unspecified; F41.9 Anxiety disorder, unspecified; E78.5 Hyperlipidemia, unspecified; M19.90 Unspecified osteoarthritis, unspecified site; I95.9 Hypotension, unspecified; D72.829 Elevated white blood cell count, unspecified; F17.210 Nicotine dependence, cigarettes, uncomplicated; Z95.5 Presence of coronary angioplasty implant and graft; Z79.02 Long term (current) use of antithrombotics/antiplatelets; Z79.82 Long term (current) use of aspirin; Z98.51 Tubal ligation status; Z98.890 Other specified postprocedural states; Z79.899 Other long term (current) drug therapy
CPT/HCPCS: 36415; 71045; 74176; 80053; 83605; 83690; 84484; 85025; 85610; 93005; 96361; 96365; 96375; 96376; 99285; J1170 ×3; J2405; J2543; J2765; J3490 ×2; J7030 ×2; 80048; 81003; 85027; 93010; 99222; 99232; 99239; A9270-GY